=== PATIENT | female | born 1965 | race Caucasian/White ===

== ENCOUNTER 2023-10-07 14:44 | Emergency (ER) | payer MEDICAID, SELFPAY ==
--- NOTE | ~2023-10-07 | US_ITS ---
EXAMINATION: US PELVIS CLINICAL INFORMATION: Left lower quadrant pain, abnormal CT. COMPARISON: CT abdomen/pelvis earlier today. TECHNIQUE: Ultrasound of the pelvis is performed using both transabdominal and transvaginal transducers along with Doppler. Transvaginal imaging is performed due to inadequate visualization transabdominally. FINDINGS: Anteverted and anteflexed uterus measuring 8.6 x 3.9 x 4.4 cm. There is a 0.8 x 0.6 x 0.8 cm intramural posterior uterine lesion, most likely representing a fibroid. There is a 1.3 x 1.3 x 1.4 centimeters indeterminate intramural lesion in the cervix. The endometrium is heterogeneous with combination of solid and cystic appearing contents, measuring up to 0.6 cm in thickness. The ovaries are normal in morphology with preserved flow at the moment of this examination. The right ovary measures 1.5 x 1.2 x 1.6 cm, 1.5 mL. The left ovary measures 1.9 x 1.5 x 2.2 cm, 3.3 mL. No significant amount of free fluid. US/US pelvic and transvaginal IMPRESSION: 1. The endometrium is heterogeneous with combination of solid and cystic appearing contents, measuring up to 0.6 cm in thickness. This is abnormal in a postmenopausal patient and gynecologic consultation is recommended for evaluation of hyperplasia/neoplasia. 2. There is a 1.4 cm indeterminate intramural lesion in the cervix, possibly representing a fibroid, although location is somewhat atypical. This could be further characterized with an outpatient pelvic MRI with and without IV contrast. 3. There is a 0.8 cm intramural posterior uterine lesion, most likely representing a fibroid. 4. The ovaries are normal in morphology with preserved flow at the moment of this examination.
--- NOTE | ~2023-10-07 | CT_ITS ---
EXAMINATION: CT ABDOMEN AND PELVIS WITH CONTRAST CLINICAL INFORMATION: Left-sided abdominal pain. COMPARISON: None available. TECHNIQUE: Multidetector volumetric images were obtained from the superior aspect of the liver through the pubic symphysis following administration 85 mL of Omnipaque 350 intravenous contrast. Sagittal and coronal reformatted images were obtained on the technologist's workstation. Oral contrast: No This CT examination was performed using dose optimization techniques as appropriate, variously including the following: *Automated exposure control *Adjustment of mA and/or kV according to patient size (this includes techniques or standardized protocols for targeted exams where dose is matched to indication/reason for exam; i.e. extremities or head) *Use of iterative reconstruction technique DLP: 577 mGy-cm FINDINGS: LUNG BASES: No focal consolidation or pleural effusion. Few nonspecific nodularities in the bilateral breasts, for instance measuring 1 cm in the inferolateral left breast (6:15) and 0.7 cm in the central right breast (6:104). LIVER, GALLBLADDER, AND BILIARY TREE: The liver is mildly enlarged measuring 18.2 cm craniocaudally and demonstrates decreased parenchymal attenuation suggesting hepatic steatosis. Otherwise, the liver is normal in morphology without suspicious focal lesion. The gallbladder is not seen, presumably surgically removed or decompressed. No significant inflammatory changes in the gallbladder fossa. No biliary ductal dilatation. PANCREAS: Diffuse fatty atrophy. No main ductal dilatation. No peripancreatic inflammatory changes. SPLEEN: Unremarkable. ADRENAL GLANDS: Unremarkable. KIDNEYS AND URETERS: The kidneys are normal in size, shape, and attenuation. A few too small to characterize cortical hypodensities, for which no imaging follow-up is recommended. No hydronephrosis, hydroureter, or calculi seen. No perinephric stranding. BLADDER: Unremarkable. GASTROINTESTINAL TRACT: The stomach and the small bowel are nondilated. Duodenal diverticulum. Normal appendix. No pericolonic inflammatory changes. No evidence of bowel obstruction. ABDOMINAL WALL: No significant hernia is appreciated. LYMPH NODES: No lymphadenopathy by CT short axis size criteria. VASCULAR: Scattered atherosclerotic disease. Normal caliber of the abdominal aorta. PELVIC VISCERA: Trace amount of free fluid and fat stranding in the pelvis around the left greater than right adnexa and in the cul-de-sac. Slightly asymmetric left adnexal vasculature. Nonspecific high density focus in the mid endometrial canal measuring 0.9 cm (sagittal image 55 series 6). OSSEOUS STRUCTURES: Unremarkable. CT/CT abdomen pelvis w IV con IMPRESSION: 1. Trace amount of free fluid and fat stranding in the pelvis around the left greater than right adnexa and in the cul-de-sac. These findings are nonspecific and could be physiologic, recommend clinical correlation for acute genitourinary pathology, and if indicated consider further characterization with pelvic ultrasound. 2. Nonspecific high density focus in the mid endometrial canal. Recommend further characterization with a nonemergent pelvic ultrasound. 3. The left gonadal/adnexal veins are slightly asymmetric and engorged, some degree of underlying pelvic venous insufficiency could be present in the appropriate clinical context. 4. Mild hepatomegaly and hepatic steatosis. 5. Nonspecific nodularities in the bilateral breasts. Recommend correlation with a nonemergent diagnostic mammogram.
[2023-10-07 15:00] VITALS: BP 175/85; PULSE 96; RESP 18; TEMP 36.6; O2SAT 97; BMI 29.0
--- NOTE | 2023-10-07 15:03 | ED_ITS ---
HPI - General Adult General Chief complaint: Abdominal Pain Stated complaint: Fever 5 days, back pain L side Time Seen by Provider: 10/07/23 16:23 Source: patient Mode of arrival: ambulatory Limitations: no limitations History of Present Illness HPI narrative: Patient is a 58-year-old female who presents to the emergency department for evaluation. She endorses tactile fever, and left-sided abdominal pain, feels as though it is worse in the lower quadrant but present also to the upper quadrant, and radiates to her left lower back. She denies any history of similar pain in the past. She does state that when she is urinating she notices a ?pulling sensation? to the left lower quadrant. Admits that pain is worse at times with certain movements. She has been taking Tylenol every 4 hours which provides her some relief but the pain remains constant. She denies chest pain, shortness of breath, nausea, vomiting, dysuria, hematuria, urinary frequency/urgency/hesitancy, abnormal vaginal discharge, pelvic pain, constipation, diarrhea, hematochezia, melena. Related Data Allergies Allergy/AdvReac Type Severity Reaction Status Date / Time latex Allergy Intermediate Rash Verified 10/07/23 16:28 morphine Allergy Unknown Unknown Verified 10/07/23 16:28 Review of Systems 2 Review of Systems: Yes all other systems are reviewed and are negative PMFSH Past Medical History Attestation statement: The following information was validated with the patient. Source: old records reviewed Social History Social History Smoked in Last 30 Days: No Advance Directives: No Advance Directives Information Provided: No Do you have a plan to hurt others: No Plan Patient : No Physical Exam ED Vital Signs: Vital Signs - 24 hr 10/07/23 15:00 10/07/23 16:18 10/07/23 18:31 Temperature 98 F 98.2 F 97.5 F Pulse Rate 96 86 91 Respiratory Rate 18 18 12 Blood Pressure 175/85 H 179/90 H 168/71 H Pulse Oximetry 97 98 99 Oxygen Delivery Method Room Air Room Air Room Air 10/07/23 21:02 Temperature 98.0 F Pulse Rate 76 Respiratory Rate 14 Blood Pressure 149/75 H Pulse Oximetry 97 Oxygen Delivery Method Room Air BMI result Body Mass Index 29.0 Appearance: Alert.?Oriented to person, place and time. No acute distress.?Normal affect. Eyes: Pupils equal, round and reactive to light.? ENT: Pharynx normal.?? Neck: Normal inspection.? Neck supple.?? CVS: Heart sounds normal. Normal heart rate and rhythm.? Pulses normal.?? Respiratory: No respiratory distress.? Lung sounds clear to auscultation bilaterally?? Abdomen: Soft with left lower quadrant greater than left upper quadrant abdominal tenderness upon palpation, left CVA tenderness. No rigidity. No guarding.. Normoactive bowel sounds. No pulsatile mass.?? Skin: Skin warm and dry.? Normal skin color.? ? Extremities: No lower extremity edema.? Neuro: Moves all extremities spontaneously. Sensation intact bilaterally. Ambulates with normal steady gait. Course Course Course Narrative: This is a rapid medical exam performed by Netta Lehman NP: Additional HPI, ROS, PE not included below will be deferred to primary provider. Patient is a 58-year-old female presenting to the ED with complaint of fever and LLQ abdominal pain for 5 days. Denies vomiting. Reports occasional constipaiton. Plan: Labs, UA Reevaluation(s) Reevaluation #1: CT abdomen and pelvis reveals trace amount of free fluid and fat stranding in the pelvis around the left adnexa more than the right and high density focus in the mid endometrial canal measuring 0.9 cm, left gonadal/adnexal veins asymmetric and engorged, and nonspecific nodules of the bilateral breasts, recommending nonemergent diagnostic mammogram. CT is without evidence of hydronephrosis, hydroureter calculi, no diverticulitis, obstruction, or colonic changes. Reevaluation #2: Ultrasound reveals heterogeneous endometrium with solid and cystic contents, abnormal postmenopausal appearance, 1.4 cm intramural lesion to the cervix of atypical location intramural posterior uterine lesion, these findings were discussed with patient and it was recommended that she follow-up closely with enterprise security architect, we discussed concerns for potential neoplasia, and she verbalized understanding of this. Time: 21:18 Medications Administered Discontinued Medications Generic Name Dose Route Start Last Admin Trade Name Freq PRN Reason Stop Dose Admin Sodium Chloride 1,000 mls @ 999 mls/hr 10/07/23 17:00 10/07/23 19:57 Ns IV 10/07/23 18:00 Infused .Q1H1M AMPARO Infusion Iohexol 85 ml 10/07/23 17:29 10/07/23 17:30 Iohexol 350 Mg/Ml 100 Ml Infus..Btl IV 10/07/23 17:30 85 ml ONCE ONE Administration Ketorolac Tromethamine 15 mg 10/07/23 16:52 10/07/23 17:08 Ketorolac Tromethamine 15 Mg/Ml Vial IVPUSH 10/07/23 16:53 15 mg ONCE ONE Administration Medical Decision Making Medical Decision Making [facility] Narrative: Patient is a 58-year-old female with past medical history of hypertension, cholecystectomy, and fibromyalgia for which she takes meloxicam daily presenting to emergency department for evaluation of abdominal pain and tactile fevers as per HPI. Overall she appears well, nontoxic, afebrile. She is without tachycardia tachypnea or hypoxia. She is notable left-sided abdominal tenderness and left CVA tenderness on exam but no rigidity or guarding. Reviewed serum labs, she is without leukocytosis, has mild normocytic anemia that does not meet transfusion criteria, no thrombocytopenia. Electrolytes overall unremarkable, random glucose of 152, mildly elevated AST/ALT no prior available for comparison, lipase normal. Urinalysis with trace leukocyte esterase otherwise unremarkable, does not appear consistent with urinary tract infection, and no evidence of microscopic hematuria. Plan to obtain CT of the abdomen and pelvis for further evaluation, patient will receive 1 L normal saline IV fluid and Toradol IV. Differential Diagnosis Differential Diagnoses: The differential diagnosis associated with the presentation includes (Diverticulitis, colitis, suspect less likely bowel obstruction, hydronephrosis, ureteral calculi, obstructive calculi, gastritis, pancreatitis) Admission/Observation Consideration of admission/observation: Escalation of care including admission/observation considered Lab Data [facility] Lab Attestation statement: I reviewed the patient's lab results. (See narrative above) 10/07/23 15:31 10/07/23 15:31 Labs: Lab Results 10/07/23 10/07/23 Range/Units 15:31 15:35 WBC 6.2 (4.8-10.8) X10*3/uL RBC 4.03 L (4.20-5.50) X10*6/uL Hgb 11.9 L (12.0-16.0) g/dl Hct 36.3 L (37.0-47.0) % MCV 90.1 (80.0-98.0) fL MCH 29.5 (27.0-33.0) pg MCHC 32.8 (31.0-35.0) g/dl RDW 14.1 (11.0-16.0) % Plt Count 204 (160-400) X10*3/uL MPV 9.3 L (9.4-12.3) fL Immature Gran % (Auto) 0.3 (0.0-0.4) % Neut % (Auto) 47.5 (45-73) % Lymph % (Auto) 33.4 (20-40) % Person % (Auto) 16.9 H (2-11) % Eos % (Auto) 1.9 (0-4) % Baso % (Auto) 0.0 (0-2) % Lymph # (Auto) 2.1 (1.2-4.9) X10*3/uL Person # (Auto) 1.1 (0.1-1.2) X10*3/uL Eos # (Auto) 0.1 (0.0-0.4) X10*3/uL Baso # (Auto) 0.0 (0.0-0.2) X10*3/uL Abs Immat Gran (auto) 0.02 (0.00-0.03) X10*3/uL Absolute Neuts (auto) 3.0 (2.0-8.3) x10*3/uL Absolute Nucleated RBC 0.000 (0.0-0.012) X10*3/uL Nucleated RBC % (auto) 0.0 (0.0-0.2) /100WBC PT 13.0 (11.1-13.3) SEC INR 1.1 (0.9-1.1) Sodium 144 (135-145) mmol/L Potassium 4.3 (3.3-5.1) mmol/L Chloride 109 H (96-108) mmol/L Carbon Dioxide 28 (22-29) mmol/L Anion Gap 11 L (12-20) BUN 13 (9-16) mg/dL Creatinine 0.90 (0.5-1.4) mg/dL Estim Creat Clear Calc 71.6 Estimated GFR > 60 Random Glucose 152 H (60-115) mg/dL Calcium 9.8 (8.4-10.2) mg/dL Total Bilirubin 0.2 (0.0-1.0) mg/dL AST 40 H (5-31) U/L ALT 78 H (0-31) U/L Alkaline Phosphatase 101 (39-117) U/L Total Protein 7.5 (6.5-8.0) g/dL Albumin 4.0 (3.5-5.0) g/dL Lipase 17 (8-78) U/L Urine Color Yellow Urine Appearance Clear Urine pH 7.0 (5.0-9.0) Ur Specific [place] 1.025 (1.005-1.025) Urine Protein Trace (Neg-Trace) mg/dL Urine Glucose (UA) Negative (Negative) mg/dL Urine Ketones Trace (Negative) mg/dL Urine Blood Negative (Negative) Urine Nitrite Negative (Negative) Ur Leukocyte Esterase Trace H (Negative) Urine RBC 0-2 (0-2) /HPF Urine WBC 0-5 (0-5) /HPF Ur Squamous Epith Cells 0-2 (0-2) /HPF Urine Bacteria None Seen (None Seen) Hyaline Casts 0-2 (0-2) /LPF Radiology Impression Discussion of test interpretation with radiology: I have reviewed the radiologist's reading. Radiologist Impression: CT/CT abdomen pelvis w IV con IMPRESSION: 1. Trace amount of free fluid and fat stranding in the pelvis around the left greater than right adnexa and in the cul-de-sac. These findings are nonspecific and could be physiologic, recommend clinical correlation for acute genitourinary pathology, and if indicated consider further characterization with pelvic ultrasound. 2. Nonspecific high density focus in the mid endometrial canal. Recommend further characterization with a nonemergent pelvic ultrasound. 3. The left gonadal/adnexal veins are slightly asymmetric and engorged, some degree of underlying pelvic venous insufficiency could be present in the appropriate clinical context. 4. Mild hepatomegaly and hepatic steatosis. 5. Nonspecific nodularities in the bilateral breasts. Recommend correlation with a nonemergent diagnostic mammogram. US/US pelvic and transvaginal IMPRESSION: 1. The endometrium is heterogeneous with combination of solid and cystic appearing contents, measuring up to 0.6 cm in thickness. This is abnormal in a postmenopausal patient and gynecologic consultation is recommended for evaluation of hyperplasia/neoplasia. 2. There is a 1.4 cm indeterminate intramural lesion in the cervix, possibly representing a fibroid, although location is somewhat atypical. This could be further characterized with an outpatient pelvic MRI with and without IV contrast. 3. There is a 0.8 cm intramural posterior uterine lesion, most likely representing a fibroid. 4. The ovaries are normal in morphology with preserved flow at the moment of this examination. Discharge Plan Discharge Clinical Impression: Abnormal ultrasound of endometrium, Abdominal pain Instructions: Abdominal Pain (ED) Additional Instructions: As discussed, the pelvic ultrasound today shows an abnormal endometrium which is the inner lining of your uterus, as well as a lesion on your cervix and a posterior uterine lesion. As discussed, it is very important that you follow-up closely with a 7th grade teacher for further evaluation and determination as to whether this may indicate a cancerous process. US/US pelvic and transvaginal IMPRESSION: 1. The endometrium is heterogeneous with combination of solid and cystic appearing contents, measuring up to 0.6 cm in thickness. This is abnormal in a postmenopausal patient and gynecologic consultation is recommended for evaluation of hyperplasia/neoplasia. 2. There is a 1.4 cm indeterminate intramural lesion in the cervix, possibly representing a fibroid, although location is somewhat atypical. This could be further characterized with an outpatient pelvic MRI with and without IV contrast. 3. There is a 0.8 cm intramural posterior uterine lesion, most likely representing a fibroid. 4. The ovaries are normal in morphology with preserved flow at the moment of this examination. Referrals: Reid Sutherland MD [Physician] - Print Language: Citizen [place]
[2023-10-07 15:39] LABS: MANUAL DIFF FLAG NO
[2023-10-07 15:44] LABS: Appearance Urine Clear; Color Urine Yellow; Glucose Urine UA Negative (Negative); Leukocyte Esterase Urine Trace (Negative); Nitrite Urine Negative (Negative); Specific Gravity - Urine 1.025 (1.005-1.025); UMIC TRIGGER UACC YES; Urine Blood Negative (Negative); Urine Ketones Trace mg/dL (Negative); Urine Protein Trace mg/dL (Neg-Trace)
[2023-10-07 15:49] LABS: INTERNATIONAL NORM RATIO 1.1 (0.9-1.1)
[2023-10-07 15:49] LABS: Bacteria Urine None Seen (None Seen); Hyaline Casts Urine 0-2 /LPF (0-2); RBC Urine 0-2 /HPF (0-2); Squamous Epithelial Cell Urine 0-2 /HPF (0-2); WBC Urine 0-5 /HPF (0-5)
[2023-10-07 15:50] LABS: Eosinophils Absolute Auto 0.1 X10*3/uL (0.0-0.4); Eosinophils Percent Auto 1.9 % (0-4); Hematocrit 36.3 % (37.0-47.0); Hemoglobin 11.9 g/dl (12.0-16.0); Imm Gran Abs Auto 0.02 X10*3/uL (0.00-0.03); Imm Gran Pct Auto 0.3 % (0.0-0.4); Lymphocytes Absolute Auto 2.1 X10*3/uL (1.2-4.9); Lymphocytes Percent Auto 33.4 % (20-40); Mean Corpuscular HGB Conc 32.8 g/dl (31.0-35.0); Mean Corpuscular Hemoglobin 29.5 pg (27.0-33.0); Mean Corpuscular Volume 90.1 fL (80.0-98.0); Mean Platelet Volume 9.3 fL (9.4-12.3); Monocytes Absolute Auto 1.1 X10*3/uL (0.1-1.2); Monocytes Percent Auto 16.9 % (2-11); Neutrophils Percent Auto 47.5 % (45-73); Platelet Count 204 X10*3/uL (160-400); Red Blood Count 4.03 X10*6/uL (4.20-5.50); Red Cell Distribution Width 14.1 % (11.0-16.0); White Blood Count 6.2 X10*3/uL (4.8-10.8)
[2023-10-07 16:05] LABS: Alanine Aminotransferase 78 U/L (0-31); Alkaline Phosphatase 101 U/L (39-117); Anion Gap 11 (12-20); Aspartate Amino Transferase 40 U/L (5-31); Bilirubin Total 0.2 mg/dL (0.0-1.0); Blood Urea Nitrogen 13 mg/dL (9-16); Calcium 9.8 mg/dL (8.4-10.2); Carbon Dioxide 28 mmol/L (22-29); Chloride 109 mmol/L (96-108); Creatinine Clr Calc Pharmacy 71.6; Estimated Glomerular Filt Rate > 60; Glucose Random 152 mg/dL (60-115); Potassium 4.3 mmol/L (3.3-5.1); Sodium 144 mmol/L (135-145); Total Protein 7.5 g/dL (6.5-8.0)
[2023-10-07 16:18] VITALS: BP 179/90; PULSE 86; RESP 18; TEMP 36.8; O2SAT 98
[2023-10-07] MEDS: Ketorolac Tromethamine 15 MG/ML VIAL IVPUSH (17:08)
[2023-10-07] MEDS: 0.9 % Sodium Chloride 1,000 ML 999 ML IV (17:08)
--- NOTE | 2023-10-07 17:15 | PC.NURSE ---
patient a&ox3, iv inserted, ivf hung per order, pt medicated per order, vss, call camacho within reach, will continue to monitor
[2023-10-07] MEDS: iohexoL 350 MG/ML 100 ML INFUS..BTL 85 ML IV (17:30)
[2023-10-07 18:20] LABS: Lipase 17 U/L (8-78)
[2023-10-07 18:31] VITALS: BP 168/71; PULSE 91; RESP 12; TEMP 36.4; O2SAT 99
[2023-10-07 21:02] VITALS: BP 149/75; PULSE 76; RESP 14; TEMP 36.7; O2SAT 97
[2023-10-07 21:45] VITALS: BP 149/75; PULSE 76; RESP 14; TEMP 36.7; O2SAT 97
== END 2023-10-07 21:46 | disposition home or self-care (01) ==
PROVIDERS: Nurse Practitioner Family; Registered Nurse Emergency; Emergency Provider Internal Medicine
DX: M54.50 Low back pain, unspecified (principal); R93.5 Abnormal findings on diagnostic imaging of other abdominal regions, including retroperitoneum; R10.32 Left lower quadrant pain; R30.0 Dysuria; R10.2 Pelvic and perineal pain; R11.2 Nausea with vomiting, unspecified; Z79.899 Other long term (current) drug therapy
CPT/HCPCS: 36415; 74177; 76830; 76856; 80053; 81001; 83690; 85025; 85610; 96361; 96374; 99284; J1885; Q9967

== ENCOUNTER 2024-06-15 09:16 | Outpatient (AMB) | payer OTHER, SELFPAY ==
[2024-06-15 09:53] VITALS: BP 146/92; BMI 29.7
--- NOTE | 2024-06-15 09:53 | MHC.OFFVIS ---
Vital Signs 06/15/24 09:53 Height 5 ft 4.5 in Weight 176 lb BMI 29.7 BP 146/92 H Intake Visit Reasons: Abnormal ultrasound Oil Program Compliance Specialist Required: Yes Oil Program Compliance Specialist Language: Frame Stylist Services: Oil Program Compliance Specialist Present (in person) Oil Program Compliance Specialist Name: Дмитрий GA Information Interpreted: non-clinical & clinical Accompanied by: Self / Same As Patient Allergies codeine Allergy (Intermediate, Verified 06/15/24 09:56) Vomiting latex Allergy (Intermediate, Verified 06/15/24 09:56) Rash morphine Allergy (Unknown, Verified 06/15/24 09:56) Unknown Post menopausal: Yes HPI Comments Details: Presenting referred for abnormal ultrasound done in the emergency room. Pelvic ultrasound done on 10/07/2023 showed the following: IMPRESSION: 1. The endometrium is heterogeneous with combination of solid and cystic appearing contents, measuring up to 0.6 cm in thickness. This is abnormal in a postmenopausal patient and gynecologic consultation is recommended for evaluation of hyperplasia/neoplasia. 2. There is a 1.4 cm indeterminate intramural lesion in the cervix, possibly representing a fibroid, although location is somewhat atypical. This could be further characterized with an outpatient pelvic MRI with and without IV contrast. 3. There is a 0.8 cm intramural posterior uterine lesion, most likely representing a fibroid. 4. The ovaries are normal in morphology with preserved flow at the moment of this examination. [facility] Medical History (Updated 06/15/24 @ 10:21 by Reid Sutherland MD) Breast cancer Fibromyalgia GERD (gastroesophageal reflux disease) HTN (hypertension) Surgical History (Updated 06/15/24 @ 10:01 by Marisela Rodriguez CMA) Hx of tubal ligation History of bladder surgery Hx of breast surgery Hx of cholecystectomy Family History (Updated 06/15/24 @ 10:03 by Marisela Rodriguez CMA) Mother HTN (hypertension) Father HTN (hypertension) Heart attack Maternal Aunt Breast cancer Maternal Uncle Colon cancer Paternal Grandmother Uterus cancer Social History Household Members: None Housing: House Alcohol intake: never Patient Tobacco Use Status: Never used Tobacco Current occupational status: employed 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 Recommended to the patient that the next step is an endometrial sampling via hysteroscopy D&C possible polypectomy versus endometrial biopsy to r/o endometrial pathology including hyperplasia or cancer. All the pros and cons risks and benefits of each approach were discussed with the patient, endometrial biopsy being less invasive, office procedure with less sensitivity and inability diagnose a polyp and removal versus hysteroscopy done under anesthesia more invasive more sensitive to endometrial cancer and possibility of diagnosing and endometrial polyp with the possibility of polypectomy. All questions were answered pt verbalized understanding and decided to proceed with endometrial biopsy Discussed with the patient the procedure , all benefits and risks including but not limited to inability to complete the procedure , insufficient endometrial tissue for a complete evaluation of the endometrial cavity , bleeding, infection, possible need for blood transfusion with all its risk ( HIV,syphilis, Hepatitis, anaphylaxis shock, others..), injury to bladder, rectum, possible need for laparoscopy/laparotomy or hysterectomy. The patient verbalized understanding and signed the consent. Instructions given the patient to stay NPO after midnight the day prior to the procedure and to take only losartan the morning of the surgical procedure and to schedule a 2 week postoperative appointment (2) Myoma: Comment: uterinr myoma cervix atypical looking by us Code(s): D21.9 - Benign neoplasm of connective and other soft tissue, unspecified Category: Medical Plan: Co testing done. Given the atypical appearance of the cervical lesion possible myoma pelvic MRI ordered. Instructions given the patient to schedule MRI and a follow-up appointment within 2 weeks. Orders: Orders MR pelvis wo/w con Today D21.9 - Benign neoplasm of connective and other soft tissue, unspecified Coding Level of Care Code New Pt Level 3 (11417) Diagnoses Abnormal ultrasound of endometrium R93.5 Myoma D21.9
--- OUTSIDE RECORDS SUMMARY | 2024-06-15 10:12 | XMS_ITS | Clinical Summary ---
Author Organization [facility] Address [address] [place] [address] Care Team Providers Care Near East Archeology Professor Name Role Phone Morelia Astudillo MD Primary Care Provider [phone] Surgical History Surgery Date Site/Laterality Comments COLONOSCOPY 07/19/08 PROCEDURE: HISTORICAL COLONOSCOPY; COMMENT: normal; repeat in ten years CHOLECYSTECTOMY 2005 PROCEDURE: HISTORICAL CHOLECYSTECTOMY; COMMENT: [facility] BLADDER SUSPENSION 2015 PROCEDURE: HISTORICAL BLADDER SUSPENSION TUBAL LIGATION PROCEDURE: HISTORICAL TUBAL LIGATION OTHER SURGICAL HISTORY 07/07/2017 Right PROCEDURE: BREAST TISSUE EXCISIONAL PATHOLOGY EXAM; COMMENT: no malignancy noted Medical History Medical History Date Comments Atypical ductal hyperplasia of right breast 06/20/2017 DX:Atypical ductal hyperplas ia of right breast; COMMENT: 06/06/2017 breast biopsy Hypertension 06/20/2017 DX:Hypertension History of positive PPD 09/05/2017 DX:Histo ry of positive PPD Asymptomatic varicose veins of both lower extremities 09/10/2018 DX:Asymptomatic varicose vei ns of both lower extremities Gastroesophageal reflux disease 09/10/2018 DX:Gastroesophageal reflux disease Primary osteoarthritis invol ving multiple joints 02/03/2019 DX:Primary osteoarthritis in volving multiple joints; COMMENT: Folows with rheumatology [place] Fibromyalgia 02/03/2019 DX:Fibromyalgia; COMMENT: Follows with rheumatology Actinic keratosis, hx of DX:Acti azael keratosis, hx of Family History Medical History Relation Name Comments Breast cancer Aunt maternal diag in her 40 's, diabetes Heart attack Father CAD Colon polyps Mother x4, arthritis, hyperlipidemia, hypertension Colon cancer Uncle ? mat or patern al Relation Name Status Comments Aunt maternal Alive mom's sister br east cancer Father diabetes Mother Alive arthritis, chol esterol problems Uncle Social History Tobacco Use Types Packs/Day Years Used Date Smoking Tobacco: Never Smokeless Tobacco: Never Alcohol Use Standard Drinks/Week Comments No 0 (1 standard drink = 0.6 oz pur e alcohol) Comments Unknown Sex and Gender Information Value Date Recorded Sex Assigned at Not on file Legal Sex Female 6:19 PM EST Gender Identity Not on file Sexual Orientation Not on file Obstetrics History Plan of Treatment Health Maintenance Due Date Last Done Comments Breast Cancer Screening 1965 Pneumococcal Vaccine: 50+ Years (1 of 1 - PCV) 2013 Zoster Vaccines (1 of 2) 2013 Cervical Cancer Screening: P ap Smear 02/13/2021 02/13/2018 COVID-19 Vaccine (3 - 2023-2 5 season) 2023 07/31/2020, 07/01/2020 Influenza Vaccine (#1) 2023 , 01/23/2018 DTaP,Tdap,and Td Vaccines (3 - Td or Tdap) 09/06/2027 09/05/2017, 04/29/2005 RSV Immunization Patients 60 + Years Old (1 - 1-dose 75+ series) 2038 HIB Vaccines Aged Out No longer eligi ble based on patient's age to complete this topic HPV Vaccines Aged Out No longer eligi ble based on patient's age to complete this topic Hepatitis A Vaccines Aged Out No long er eligible based on patient's age to complete this topic Hepatitis B Vaccines Aged Out No long er eligible based on patient's age to complete this topic IPV Vaccines Aged Out No longer eligi ble based on patient's age to complete this topic MMR Vaccines Aged Out No longer eligi ble based on patient's age to complete this topic Meningococcal ACWY Vaccine Aged Out N o longer eligible based on patient's age to complete this topic Meningococcal B Vacine Aged Out No lo nger eligible based on patient's age to complete this topic Pneumococcal Vaccine: Pediatrics (0 to 5 Years) and At-Risk Patients (6 to 64 Years) Aged Out No longer eligible b ased on patient's age to complete this topic RSV Immunization Patients Under 20 months Aged Out No longer eligible b ased on patient's age to complete this topic Varicella Vaccines Aged Out No longer eligible based on patient's age to complete this topic Procedures Procedure Name Priority Date/Time Associated Diagnosis Comments PAP SMEAR Routine 02/13/2018 from Last 3 Months or Most Recently Relevant to Health Maintenance Results * Pap smear (02/13/2018) 02/13/2018 Narrative HISTORICAL TESTING LAB RESULTING AGENCY - 02/20/2018 8:17 AM EST [id number] THINPREP PAP, IMAGED: NEGATIVE FOR SQUAMOUS INTRAEPITHELIAL LESION AND MALIGNANCY . REACTIVE CELLULAR CHANGES. REDD SRIVASTAVA(ASCP) (CASE SCREENED 02 17 2018) BRITTNEY ALEGRIA M.D. , PATHOLOGIST (CASE ELECTRONICALLY SIGNED 02 18 2018) RESULT OF APTIMA HIGH RISK HPV ASSAY: HIGH RISK HPV: ??NEGATIVE (SEROTYPES 16,18,31,33,35,39,45,51,52,56,58,59,66,68) COMPLETED ON 2018-02-17 ADEQUACY: SATISFACTORY ENDOCERVICAL/TRANSFORMATION ZONE COMPONENT PRESENT. SOURCE: THINPREP PAP HPV ANY DX: ??REFLEX 16 AND 18, CERVICAL, IMAGED: CLINICAL INFORMATION: HPV ANY DIAGNOSIS. Z01.419, Z12.4 us Chauncey Oneill MD LAB CYTOLOGY ORDERABLES Final Result HISTORICAL TESTING LAB RESULTING AGENCY from Last 3 Months or Most Recently Relevant to Health Maintenance Care Teams Near [place] Archeology Professor Relationship Specialty Start Date End Date Morelia Astudillo MD [address] [place] [id number] PCP - General Internal Medicine 03/19/19
--- OUTSIDE RECORDS SUMMARY | 2024-06-15 10:12 | XMS_ITS | Clinical Summary ---
Author Organization [facility] Address [address] [place] [address] Care Team Providers Care Pulp Screen Operator Name Role Phone Gabbie Del Valle PA-C Primary Care Provider [phone] Source Comments PLEASE NOTE, if this patient is a minor, it may be UNLAWFUL to discuss sensitive information that is contained in these records (such as FAMILY PLANNING, MENTAL HEALTH or SUBSTANCE ABUSE) with the minor patient's parent or other person without the patient's specific authorization.[facility] Allergies Active Allergy Reactions Criticality Noted Date Comments Latex Rash 09/26/2021 Morphine (Pf) Swelling 09/26/2021 Medications omeprazole (PRILOSEC) [address] capsuleIndicatio ns:Reflux gastritis Take 1 Capsule by mouth every morning before breakfast 90 Capsule 2 Active melatonin 3 mg tabletIndication s:Insomnia, unspecified type Take 1 Tablet by mouth nightly at bedtime as needed for sleep 90 Tablet 2 Active meclizine 25 mg chewable tabletIndication s:Dizziness Place 1 Tablet into mouth, chew and swallow 3 (three) times daily as needed for nausea or dizziness 90 Tablet 2 3 Active milnacipran (SAVELLA) 25 mg tabletIndication s:Fibromyalgia Take 1 Tablet by mouth 2 (two) times daily For fibromyalgia. 60 Tablet 1 3 Active meloxicam (MOBIC) 15 mg tabletIndication s:Fibromyalgia Take 1 Tablet by mouth once daily 30 Tablet 3 4 Active DULoxetine (CYMBALTA) [address] capsuleIndicatio ns:Fibromyalgia Take 1 Capsule by mouth once daily 90 Capsule 1 4 Active loratadine (CLARITIN) 10 mg tabletIndication s:Dry cough TAKE 1 TABLET BY MOUTH ONCE DAILY NEEDED FOR ALLERGIES 90 Tablet 4 Active guaiFENesin 400 mg tabIndications:P roductive cough Take 1 Tablet by mouth every 4 (four) hours as needed for cough 30 Tablet 4 Active losartan (COZAAR) 100 mg tabletIndication s:Hypertension, essential Take 1 Tablet by mouth once daily 90 Tablet 1 4 Active Active Problems Problem Noted Date Diagnosed Date Myopia of both eyes 12/24/2023 Blurry vision, bilateral 12/24/2023 Prediabetes 12/24/2023 Food insecurity 02/06/2023 Financial difficulties 02/06/2023 Housing problems 02/06/2023 Lack of access to transportation 02/06/2023 Hypertension, essential 09/26/2021 Fibromyalgia 09/26/2021 Reflux gastritis 09/26/2021 Encounters Date Type Department Care Team Description 05/10/2024 11:40 AM EST Telemedicine Visit [address] [address] Gabbie Del Valle PA-C Abnormal endometrial ultrasound (Primary Dx); Pelvic pain 03/24/2024 1:20 PM EST Office Visit [address] [address] Gabbie Del Valle PA-C Hypertension, essential (Primary Dx); Productive cough 03/24/2024 Travel from Last 3 Months Immunizations Name Administration Dates Next Due Flu, Cell Culture based, Multi Dose, 6m+, Flucel vax 01/23/2018 Flu, Cell Culture based, Pre servative Free, 6m+, Flucelvax 03/19/2019 Flu, Preservative Free 02/06/2023 PFIZER COVID VACCINE, PURPLE CAP, 12+ 07/31/2020 ,07/01/2020 TDAP 09/05/2017 Td (adult) unspecified 06/08/2009 Td(adult),2 Lf tetanus toxoid,preservative free 04/29/2005 ZOSTER VACCINE, RECOMBINANT (SHINGRIX) 3,08/03/2022 Family History Medical History Relation Name Comments No Known Problems Father Bone cancer Maternal Aunt Breast cancer Maternal Aunt Colon Cancer Maternal Uncle No Known Problems Mother Cervical Cancer Paternal Grandmother Relation Name Status Comments Father Maternal Aunt Maternal Uncle Mother Paternal Grandmother Social History Tobacco Use Types Packs/Day Years Used Date Smoking Tobacco: Never Smokeless Tobacco: Never Tobacco Cessation:Counseling Given: Yes Alcohol Use Standard Drinks/Week Comments Never 0 (1 standard drink = 0.6 oz pur e alcohol) Social Connections Answer Date Recorded Connectedness 1 12/24/2023 Financial Resource Strain Answer Date R ecorded Financial Resource Strain 1 2023 Stress Answer Date Recorded Stress 2 12/24/2023 Physical Activity Answer Date Recorded Physical Activity 0 09/26/2021 Food Insecurity Answer Date Recorded Food 1 12/24/2023 Transportation Needs Answer Date Record ed Transportation 1 12/24/2023 Housing Stability Answer Date Recorded Housing 1 12/24/2023 Safety and Environment Answer Date Morris rded Safety 0 02/06/2023 Utilities Answer Date Recorded Utilities 1 12/24/2023 Employment Answer Date Recorded Stress 0 11/19/2022 Comments No Sex and Gender Information Value Date Recorded Sex Assigned at Female 09/26/2021 6:40 AM PDT Legal Sex Female 8:33 AM PST Gender Identity Female 09/26/2021 6:40 AM PDT Sexual Orientation Straight 09/26/2021 6: 40 AM PDT Last Filed Vital Signs Vital Sign Reading Time Taken Comments Blood Pressure 160/90 03/24/2024 1:24 PM EST Pulse 82 03/24/2024 1:24 PM EST Temperature 36.8 ??C (98.2 ??F) 03/24/2024 1:24 PM ES T Respiratory Rate 16 12/24/2023 1:17 PM EDT Oxygen Saturation 96% 03/24/2024 1:24 PM EST Inhaled Oxygen Concentration - - Weight 81.9 kg (180 lb 8 oz) 03/24/2024 1:24 PM EST Height 162.6 cm (5' 4 ) 03/24/2024 1:24 PM EST Body Mass Index 30.98 03/24/2024 1:24 PM EST Plan of Treatment Health Maintenance Due Date Last Done Comments HPV Screening 1963 CT Colonography 2008 Colonoscopy 2008 Colorectal Cancer Screening 2008 FIT/gFOBT 2008 Fecal DNA 2008 Flexible Sigmoidoscopy 2008 [id number] ( season) 2023 04/02/2021, 07/31/2020, 07/01/2020 Imm-Influenza (#1) 2023 02/06/2023, 1 05/20/2018, 01/23/2018 Breast Cancer Screening (Mammogram) 05/09/2024 11/07/2023, 10/22/2022, 10/07/2022, Additional history exists Depression Monitoring 06/22/2024 03/24/2024 , 12/24/2023, 02/06/2023, Additional history exists Annual Preventive Care Visit 12/23/202402/2024, 02/06/2023, 11/19/2022 Diabetes Screening 12/23/2024 12/24/2023, 0 12/24/2023, 01/11/2023, Additional history exists Tobacco Screening 05/10/2025 05/10/2024 Pap Smear 02/06/2026 02/06/2023 Lipid Screening 12/23/2026 12/24/2023, 12/15, 09/26/2021 Imm-DTaP/Tdap/Td (2 - Td or Tdap) 09/06/2027 09/05/2017, 06/08/2009, 04/29/2005 Cervical Cancer Screening 02/07/2028 Pap + HPV 02/07/2028 02/06/2023 HIV Screening Completed 09/26/2021 Hepatitis C Screening Completed 09/26/2021 Imm-Zoster, Recombinant Completed 10/04/2022, 08/03 Alcohol and Drug Screen Completed 05/10/19, 12/24/2023, 11/19/2022, Additional history exists Cervical Ablation/Cold-Knife Conization Discontinued Cervical Cryotherapy Discontinued Colposcopy Discontinued Endometrial Biopsy Discontinued Excision/Leep Discontinued HPV Genotyping Discontinued Vaginal Pap Discontinued Vulvoscopy Discontinued Procedures Procedure Name Priority Date/Time Associated Diagnosis Comments OTHER ORDERS SCANNED DOCUMENT 05/19/2024 3:00 AM EST US BREAST BILATERAL Routine 05/19/2024 3 :00 AM EST Cyst of right breast COMPREHENSIVE METABOLIC PANEL Routine 12/24/2023 2:05 PM EDT Hypertension, essential Prediabetes LIPIDS W RFLX TO DIRECT LDL Routine 12/24/2023 2:05 PM EDT Hypertension, essential Prediabetes HISTORIC MAMMOGRAM 11/07/2023 3: 00 AM EDT THINPREP PAP & HPV MRNA E6/E7 RFLX HPV 16,18/[address]/NG Routine 02/06/2023 10:22 AM EDT Encounter for Papanicolaou smear of vagina as part of routine gynecological examination Encounter for screening for human papillomavirus (HPV) HIV 1/2 AG & AB W/RFLX (4TH GEN) Routine 09/26/2021 10:36 AM EDT Encounter to establish care HEPATITIS C AB W/RFLX HCV RNA, QT, RT PCR Routine 09/26/2021 10:36 AM EDT Encounter to establish care from Last 3 Months or Most Recently Relevant to Health Maintenance Results * US BREAST BILATERAL (05/19/2024 3:00 AM EST) 05/19/2024 3:00 AM EST Gabbie Del Valle PA-C IMG ULTRASOUND Final Result * OTHER ORDERS SCANNED DOCUMENT (05/19/2024 3:00 AM EST) 05/19/2024 3:00 AM EST us Gabbie Del Valle PA-C SCAN OTHER ORDERS Final Resu lt * (ABNORMAL) LIPIDS W RFLX TO DIRECT LDL (12/24/2023 2:05 PM EDT) CHOLESTEROL, TOTAL 241(H) <200 mg/dL [facility] HDL CHOLESTEROL 49(L) > OR = 50 mg/dL [facility] TRIGLYCERIDES 110 <150 mg/dL [facility] LDL-CHOLESTEROL 168(H) 99 mg/dL (calc) [facility] Comment: Reference range: <100 Desirable range <100 mg/dL for primary prevention; ?? <70 mg/dL for patients with CHD or diabetic patients with > or = 2 CHD risk factors. LDL-C is now calculated using the Juan Manuel calculation, which is a validated novel method providing better accuracy than the Friedewald equation in the estimation of LDL-C. Ahmet LOCKE et al. SURINDER. 2013;310(19): 2970-2518 (http://education.Dialectica/faq/ORB775) CHOL/HDLC RATIO 4.9 <5.0 (calc) [email or web address] NON-HDL CHOLESTEROL 192(H) <130 mg/dL (calc) [email or web address] Comment: For patients with diabetes plus 1 major ASCVD risk factor, treating to a non-HDL-C goal of <100 mg/dL (LDL-C of <70 mg/dL) is considered a therapeutic option. Blood Blood / Unknown 12/24/2023 2 :05 PM EDT 12/24/2023 2:06 PM EDT Narrative [facility] - 12/26/2023 1:08 AM EDT FASTING:NO us Gabbie Del Valle PA-C LAB - BLOOD DRAW Final Resul t [facility] [address] [address], [email or web address] [address] [place] [address] * (ABNORMAL) COMPREHENSIVE METABOLIC PANEL (12/24/2023 2:05 PM EDT) [facility] GLUCOSE 79 65 - 139 mg/dL [email or web address] Comment: ?Non-fasting reference interval UREA NITROGEN (BUN) 16 7 - 25 mg/dL [email or web address] CREATININE (blood) 0.75 0.50 - 1.05 mg/dL [email or web address] EGFR 91 > OR = 60 mL/min/1. 73m2 [email or web address] BUN/CREATININE RATIO SEE NOTE: [email or web address] Comment: ?? Not Reported: BUN and Creatinine are within ?? reference range. ? SODIUM 139 135 - 146 mmol/L [email or web address] POTASSIUM 4.4 3.5 - 5.3 mmol/L [email or web address] CHLORIDE 104 98 - 110 mmol/L [facility] CARBON DIOXIDE 26 20 - 32 mmol/L [facility] CALCIUM 10.1 8.6 - 10.4 mg/dL [facility] PROTEIN, TOTAL 7.7 6.1 - 8.1 g/dL [facility] ALBUMIN 4.7 3.6 - 5.1 g/dL [facility] GLOBULIN 3.0 1.9 - 3.7 g/dL (calc) [facility] ALBUMIN/GLOBULI N RATIO 1.6 1.0 - 2.5 (calc) [facility] BILIRUBIN, TOTAL 0.4 0.2 - 1.2 mg/dL [facility] ALKALINE PHOSPHATASE 96 37 - 153 U/L [facility] AST 33 10 - 35 U/L [facility] ALT 52(H) 6 - 29 U/L [facility] Blood Blood / Unknown 12/24/2023 2 :05 PM EDT 12/24/2023 2:06 PM EDT Narrative [facility] - 12/26/2023 1:08 AM EDT FASTING:NO Gabbie Del Valle PA-C LAB - BLOOD DRAW Edited Resu lt - Final [facility] [address] [address], [facility] [address] [address] * HISTORIC MAMMOGRAM (11/07/2023 3:00 AM EDT) 11/07/2023 3:00 AM EDT us Gabbie Del Valle PA-C IMG MAMMO Final Result * THINPREP PAP & HPV MRNA E6/E7 RFLX HPV 16,18/[address]/NG (02/06/2023 10:22 AM EDT) CHLAMYDIA TRACHOMATIS RNA, TMA NOT DETECTED NOT DETECTED [facility] NEISSERIA GONORRHOEAE RNA, TMA NOT DETECTED NOT DETECTED [facility] COMMENT [facility] CLINICAL INFORMATION See Note [facility] Comment:ROUTINE EXAM LMP See Note [facility] Comment:POSTMENOPAUSAL PREV. PAP See Note [facility] Comment:NONE GIVEN PREV. BX See Note [facility] Comment:NONE GIVEN SOURCE See Note [facility] Comment:Cervix STATEMENT OF ADEQUACY See Note [facility] Comment:SATISFACTORY FOR LONNIE LUATION INTERPRETATION/RESU LT See Note [facility] Comment: Cytology Results: Negative for intraepithelial lesion or malignancy. Atrophic pattern; predominantly parabasal cells PHYSICAL SECURITY MANAGER See Note [facility] Comment: YP, CT(ASCP) CT screening location: [address] ??[address] REVIEW PHYSICAL SECURITY MANAGER See Note [facility] Comment: BLC,CT(ASCP) CT screening location: [address] ??[address] COMMENT [facility] HPV MRNA E6/E7 Not Detected Not Detected [facility] Comment: Methodology: Medical Doctor Md-Mediated Amplification This assay detects E6/E7 viral messenger RNA (mRNA) from 14 high-risk HPV types (16,18,31,33,35,39,45,51,52,56,58,59,66,68). Cervical sources are required for HPV testing. If a vaginal source from a patient who has had a total hysterectomy with removal of cervix was submitted, please contact the testing laboratory for alternative testing options. For additional information, please refer to http://education.ngmoco/faq/OJN597z7 (This link if provided for information/ educational purposes only.) CYTOLOGY Cervix uteri structure / Unknown 02/06/2023 10:22 AM EDT 02/08/2023 3:44 AM EDT Narrative [facility] - 02/13/2023 4:00 PM EDT EXPLANATORY NOTE: The Pap is a screening test for cervical cancer. It is not a diagnostic test and is subject to false negative and false positive results. It is most reliable when a satisfactory sample, regularly obtained, is submitted with relevant clinical findings and history, and when the Pap result is evaluated along with historic and current clinical information. The analytical performance characteristics of this assay, when used to test SurePath(TM) specimens have been determined by [employer]. The modifications have not been cleared or approved by the FDA. This assay has been validated pursuant to the CLIA regulations and is used for clinical purposes. For additional information, please refer to https://[employer] [place].ngmoco/faq/FBH921 (This link is being provided for information/ educational purposes only.) Nazanin Campoverde MD LAB - NO BLOOD DRAW Final Result Performing Organization Address [facility]/ZIP Co de Phone Number [facility] [address] [address], [facility] [address] [address] * HEPATITIS C AB W/RFLX HCV RNA, QT, RT PCR (09/26/2021 10:36 AM EDT) Pathologist [facility] HEPATITIS C ANTIBODY NON-REACT EVERARDO NON-REACT EVERARDO [facility] SIGNAL TO CUT-OFF 0.02 <1.00 [facility] [place] [facility] Comment: HCV antibody was non-reactive. There is no laboratory evidence of HCV infection. In most cases, no further action is required. However, if recent HCV exposure is suspected, a test for HCV RNA (test code 04667) is suggested. For additional information please refer to http://[employer] [place].ngmoco/faq/PUE91v7 (This link is being provided for informational/ educational purposes only.) Blood Blood / Unknown 09/26/2021 1 0:36 AM EDT 09/26/2021 10:37 AM EDT Gabbie Del Valle PA-C LAB - BLOOD DRAW Edited Resu lt - Final Performing Organization Address [facility]/ZIP Co de Phone Number [facility] [address] [address], [facility] [address],[facility] [place] [address] * HIV 1/2 AG & AB W/RFLX (4TH GEN) (09/26/2021 10:36 AM EDT) Pathologist [facility] HIV AG/AB, 4TH GEN NON-REAC TIVE NON-REAC TIVE [facility] Comment: HIV-1 antigen and HIV-1/HIV-2 antibodies were not detected. There is no laboratory evidence of HIV infection. PLEASE NOTE: This information has been disclosed to you from records whose confidentiality may be protected by state law. ??If your state requires such protection, then the state law prohibits you from making any further disclosure of the information without the specific written consent of the person to whom it pertains, or as otherwise permitted by law. A general authorization for the release of medical or other information is NOT sufficient for this purpose. ?? For additional information please refer to http://education.ngmoco/faq/KEV301 (This link is being provided for informational/ educational purposes only.) The performance of this assay has not been clinically validated in patients less than 2 years old. Blood Blood / Unknown 09/26/2021 1 0:36 AM EDT 09/26/2021 10:37 AM EDT Gabbie Del Valle PA-C LAB - BLOOD DRAW Final Resul t [facility] [address] [address], [facility] [address] [address] from Last 3 Months or Most Recently Relevant to Health Maintenance Insurance [facility] [employer] Member Subscriber Plan / Payer (Ef fective 2024-Present) Name:Anna Dickens Relation to Subscriber:Self Name:Anna Dickens Payer ID:[id number] Group ID:Not on file Type:Medicaid Address: [facility] [address] [place] [address] Care Teams Pulp Screen Operator Relationship Specialty Start Date End Date Gabbie Del Valle PA-C [employer] [place] [address] PCP - General Internal Medicine 07/24/21
== END 2024-06-15 10:45 | disposition home or self-care (01) ==
LOC: HO.HWS 09:16
PROVIDERS: PCP Physician Assistant; Visit Provider Obstetrics & Gynecology
DX: R93.5 Abnormal findings on diagnostic imaging of other abdominal regions, including retroperitoneum (principal); D21.9 Benign neoplasm of connective and other soft tissue, unspecified
CPT/HCPCS: 99203

== ENCOUNTER 2024-06-15 09:16 | Outpatient (REF) | payer OTHER, SELFPAY ==
--- OUTSIDE RECORDS SUMMARY | 2024-06-15 13:11 | XMS_ITS | Clinical Summary ---
Author Organization [facility] Address [address] [place] [address] Care Team Providers Care Dining Room Attendant Name Role Phone Morelia Astudillo MD Primary Care Provider [phone] Surgical History Surgery Date Site/Laterality Comments COLONOSCOPY [...] volving multiple joints; COMMENT: Folows with rheumatology [place] Fibromyalgia 02/03/2019 DX:Fibromyalgia; COMMENT: Follows with rheumatology [...] RESULTING AGENCY - 02/20/2018 8:17 AM EST [id number] THINPREP PAP, IMAGED: NEGATIVE FOR SQUAMOUS INTRAEPITHELIAL [...] Recently Relevant to Health Maintenance Care Teams Dining Room Attendant Relationship Specialty Start Date End Date Morelia Astudillo MD [address] [place] [id number] PCP - General Internal Medicine 03/19/19
--- OUTSIDE RECORDS SUMMARY | 2024-06-15 13:11 | XMS_ITS | Clinical Summary ---
Author Organization [facility] Address [address] [place] [address] Care Team Providers Care Licensed Psychologist Manager Name Role Phone Gabbie Del Valle PA-C Primary Care Provider [phone] Source Comments PLEASE NOTE, if this patient [...] Description 05/10/2024 11:40 AM EST Telemedicine Visit [address] [address] Gabbie Del Valle PA-C Abnormal endometrial ultrasound (Primary Dx); Pelvic pain 03/24/2024 1:20 PM EST Office Visit [address] [address] Gabbie Del Valle PA-C Hypertension, essential (Primary [...] 2008 Fecal DNA 2008 Flexible Sigmoidoscopy 2008 [id number] ( season) 2023 04/02/2021, 07/31/2020, 07/01/2020 Imm-Influenza [...] PM EDT) CHOLESTEROL, TOTAL 241(H) <200 mg/dL [facility] HDL CHOLESTEROL 49(L) > OR = 50 mg/dL [facility] TRIGLYCERIDES 110 <150 mg/dL [facility] LDL-CHOLESTEROL 168(H) 99 mg/dL (calc) [facility] Comment: Reference range: <100 Desirable range <100 mg/dL for primary prevention; ?? <70 mg/dL for patients with CHD or diabetic patients with > or = 2 CHD risk factors. LDL-C is now calculated using the Juan Manuel calculation, which is a validated novel method providing better accuracy than the Friedewald equation in the estimation of LDL-C. Ahmet LOCKE et al. SURINDER. 2013;310(19): 6506-0922 (http://education.View2Gether/faq/FCA721) CHOL/HDLC RATIO 4.9 <5.0 (calc) [facility] NON-HDL CHOLESTEROL 192(H) <130 mg/dL (calc) [facility] Comment: For patients with diabetes plus 1 major ASCVD risk factor, treating to a non-HDL-C goal of <100 mg/dL (LDL-C of <70 mg/dL) is considered a therapeutic option. Blood Blood / Unknown 12/24/2023 2 :05 PM EDT 12/24/2023 2:06 PM EDT Narrative [facility] - 12/26/2023 1:08 AM EDT FASTING:NO us Gabbie Del Valle PA-C LAB - BLOOD DRAW Final Resul t [facility] [address] [address], [facility] [address] [place] [address] * (ABNORMAL) COMPREHENSIVE METABOLIC PANEL (12/24/2023 2:05 PM EDT) [facility] GLUCOSE 79 65 - 139 mg/dL [facility] Comment: ?Non-fasting reference interval UREA NITROGEN (BUN) 16 7 - 25 mg/dL [facility] CREATININE (blood) 0.75 0.50 - 1.05 mg/dL [facility] EGFR 91 > OR = 60 mL/min/1. 73m2 [facility] BUN/CREATININE RATIO SEE NOTE: [facility] Comment: ?? Not Reported: BUN and Creatinine are within ?? reference range. ? SODIUM 139 135 - 146 mmol/L [facility] POTASSIUM 4.4 3.5 - 5.3 mmol/L [facility] CHLORIDE 104 98 - 110 mmol/L [facility] CARBON DIOXIDE 26 20 - 32 mmol/L [facility] CALCIUM 10.1 8.6 - 10.4 mg/dL [facility] PROTEIN, TOTAL 7.7 6.1 - 8.1 g/dL [facility] ALBUMIN 4.7 3.6 - 5.1 g/dL [facility] GLOBULIN 3.0 1.9 - 3.7 g/dL (calc) [facility] ALBUMIN/GLOBULI N RATIO 1.6 1.0 - 2.5 (calc) [facility] BILIRUBIN, TOTAL 0.4 0.2 - 1.2 mg/dL [facility] ALKALINE PHOSPHATASE 96 37 - 153 U/L [facility] AST 33 10 - 35 U/L [facility] ALT 52(H) 6 - 29 U/L [facility] Blood Blood / Unknown 12/24/2023 2 :05 PM EDT 12/24/2023 2:06 PM EDT Narrative [facility] - 12/26/2023 1:08 AM EDT FASTING:NO Gabbie Del Valle PA-C LAB - BLOOD DRAW Edited Resu lt - Final [facility] [address] [address], [facility] [address] [address] * HISTORIC MAMMOGRAM (11/07/2023 3:00 AM EDT) 11/07/2023 3:00 AM EDT us Gabbie Del Valle PA-C IMG MAMMO Final Result * THINPREP PAP & HPV MRNA E6/E7 RFLX HPV 16,18/[address]/NG (02/06/2023 10:22 AM EDT) CHLAMYDIA TRACHOMATIS RNA, TMA NOT DETECTED NOT DETECTED [facility] NEISSERIA GONORRHOEAE RNA, TMA NOT DETECTED NOT DETECTED [facility] COMMENT [facility] CLINICAL INFORMATION See Note [facility] Comment:ROUTINE EXAM LMP See Note [facility] Comment:POSTMENOPAUSAL PREV. PAP See Note [facility] Comment:NONE GIVEN PREV. BX See Note [facility] Comment:NONE GIVEN SOURCE See Note [facility] Comment:Cervix STATEMENT OF ADEQUACY See Note [facility] Comment:SATISFACTORY FOR LONNIE LUATION INTERPRETATION/RESU LT See Note [facility] Comment: Cytology Results: Negative for intraepithelial lesion or malignancy. Atrophic pattern; predominantly parabasal cells BOARD SAW RUNNER See Note [facility] [employer] [facility] Comment: YP, CT(ASCP) CT screening location: [address] ??[address] REVIEW BOARD SAW RUNNER See Note [facility] Comment: BLC,CT(ASCP) CT screening location: [address] ??[address] COMMENT [facility] HPV MRNA E6/E7 Not Detected Not Detected [facility] Comment: Methodology: Roll Tension Tester-Mediated Amplification This assay detects E6/E7 viral messenger RNA (mRNA) from 14 high-risk HPV types (16,18,31,33,35,39,45,51,52,56,58,59,66,68). Cervical sources are required for HPV testing. If a vaginal source from a patient who has had a total hysterectomy with removal of cervix was submitted, please contact the testing laboratory for alternative testing options. For additional information, please refer to http://education.OuiCar/faq/NQG648j8 (This link if provided for information/ educational purposes only.) CYTOLOGY Cervix uteri structure / Unknown 02/06/2023 10:22 AM EDT 02/08/2023 3:44 AM EDT Narrative [facility] - 02/13/2023 4:00 PM EDT EXPLANATORY NOTE: [...] test SurePath(TM) specimens have been determined by [employer]. The modifications have not been cleared or approved by the FDA. This assay has been validated pursuant to the CLIA regulations and is used for clinical purposes. For additional information, please refer to https://[employer].OuiCar/faq/PYK719 (This link is being provided for information/ educational purposes only.) Nazanin Campoverde MD LAB - NO BLOOD DRAW Final Result Performing Organization Address [facility]/ZIP Co de Phone Number [facility] [address] [address], [facility] [address] [address] * HEPATITIS C AB W/RFLX HCV RNA, QT, RT PCR (09/26/2021 10:36 AM EDT) Pathologist [facility] [place] HEPATITIS C ANTIBODY NON-REACT EVERARDO NON-REACT EVERARDO [facility] SIGNAL TO CUT-OFF 0.02 <1.00 [facility] [place] [employer] Comment: HCV antibody was non-reactive. There is no laboratory evidence of HCV infection. In most cases, no further action is required. However, if recent HCV exposure is suspected, a test for HCV RNA (test code 53788) is suggested. For additional information please refer to http://[employer].OuiCar/faq/YMN47s2 (This link is being provided for informational/ educational purposes only.) Blood Blood / Unknown 09/26/2021 1 0:36 AM EDT 09/26/2021 10:37 AM EDT Gabbie Del Valle PA-C LAB - BLOOD DRAW Edited Resu lt - Final Performing Organization Address [facility]/ZIP Co de Phone Number [facility] [address] [address], [facility] [address],[facility] [address] * HIV 1/2 AG & AB W/RFLX (4TH GEN) (09/26/2021 10:36 AM EDT) Pathologist [facility] [place] HIV AG/AB, 4TH GEN NON-REAC TIVE NON-REAC TIVE [facility] Comment: HIV-1 antigen and HIV-1/HIV-2 antibodies were [...] ?? For additional information please refer to http://education.OuiCar/faq/EJP046 (This link is being provided for informational/ educational purposes only.) The performance of this assay has not been clinically validated in patients less than 2 years old. Blood Blood / Unknown 09/26/2021 1 0:36 AM EDT 09/26/2021 10:37 AM EDT Gabbie Del Valle PA-C LAB - BLOOD DRAW Final Resul t [facility] [place] [employer] [address] [address], [email or web address] [facility] [address] [address] from Last 3 Months or Most Recently Relevant to Health Maintenance Insurance [facility] Member Subscriber Plan / Payer (Ef fective 2024-Present) Name:Anna Dickens Relation to Subscriber:Self Name:Anna Dickens Payer ID:[id number] Group ID:Not on file Type:Medicaid Address: [facility] [address] [place] [address] Care Teams Licensed Psychologist Manager Relationship Specialty Start Date End Date Gabbie Del Valle PA-C [facility] [place] [address] PCP - General Internal Medicine 07/24/21
[2024-06-18 14:56] LABS: HPV Genotype 16 Negative (Negative); HPV Genotype 18 Negative (Negative); HPV High Risk Negative (Negative)
== END 2024-06-15 09:17 | disposition home or self-care (01) ==
LOC: HO.LNP 09:16
PROVIDERS: PCP Physician Assistant; Visit Provider Obstetrics & Gynecology
DX: D21.9 Benign neoplasm of connective and other soft tissue, unspecified (principal); R93.5 Abnormal findings on diagnostic imaging of other abdominal regions, including retroperitoneum
CPT/HCPCS: 87626; 88175; 99202

== ENCOUNTER 2024-06-17 11:28 | Day surgery (SDC) | payer OTHER, SELFPAY ==
--- OUTSIDE RECORDS SUMMARY | 2024-06-15 16:38 | XMS_ITS | Clinical Summary ---
Author Organization [employer] [facility] Address [address] [place] [address] Care Team Providers Care Procedure Manager Name Role Phone Morelia Astudillo MD Primary Care Provider [phone] Surgical History Surgery Date Site/Laterality Comments COLONOSCOPY [...] volving multiple joints; COMMENT: Folows with rheumatology [place] Fibromyalgia 02/03/2019 DX:Fibromyalgia; COMMENT: Follows with rheumatology [...] RESULTING AGENCY - 02/20/2018 8:17 AM EST [id number] THINPREP PAP, IMAGED: NEGATIVE FOR SQUAMOUS INTRAEPITHELIAL [...] Recently Relevant to Health Maintenance Care Teams Procedure Manager Relationship Specialty Start Date End Date Morelia Astudillo MD [address] [place] [address] PCP - General Internal Medicine 03/19/19
--- OUTSIDE RECORDS SUMMARY | 2024-06-15 16:38 | XMS_ITS | Clinical Summary ---
Author Organization [facility] Address [address] [place] [address] Care Team Providers Care Manager Services Name Role Phone Gabbie Del Valle PA-C Primary Care Provider [phone] Source Comments PLEASE NOTE, if this patient [...] Description 05/10/2024 11:40 AM EST Telemedicine Visit [address] [address] Gabbie Del Valle PA-C Abnormal endometrial ultrasound (Primary Dx); Pelvic pain 03/24/2024 1:20 PM EST Office Visit [address] [address] Gabbie Del Valle PA-C Hypertension, essential (Primary [...] 2008 Fecal DNA 2008 Flexible Sigmoidoscopy 2008 [id number]-24 ( season) 2023 04/02/2021, 07/31/2020, 07/01/2020 Imm-Influenza [...] PM EDT) CHOLESTEROL, TOTAL 241(H) <200 mg/dL [facility] HDL CHOLESTEROL 49(L) > OR = 50 mg/dL [facility] TRIGLYCERIDES 110 <150 mg/dL [facility] LDL-CHOLESTEROL 168(H) 99 mg/dL (calc) [facility] [facility] Comment: Reference range: <100 Desirable range <100 mg/dL for primary prevention; ?? <70 mg/dL for patients with CHD or diabetic patients with > or = 2 CHD risk factors. LDL-C is now calculated using the Juan Manuel calculation, which is a validated novel method providing better accuracy than the Friedewald equation in the estimation of LDL-C. Ahmet LOCKE et al. SURINDER. 2013;310(19): 8775-5290 (http://education.Fundación Bases/faq/VHO075) CHOL/HDLC RATIO 4.9 <5.0 (calc) [facility] NON-HDL CHOLESTEROL 192(H) <130 mg/dL (calc) [facility] Comment: For patients with diabetes plus 1 major ASCVD risk factor, treating to a non-HDL-C goal of <100 mg/dL (LDL-C of <70 mg/dL) is considered a therapeutic option. Blood Blood / Unknown 12/24/2023 2 :05 PM EDT 12/24/2023 2:06 PM EDT Narrative [facility] - 12/26/2023 1:08 AM EDT FASTING:NO us Gabbie Del Valle PA-C LAB - BLOOD DRAW Final Resul t [facility] [address] [address], [facility] [address] [place] [address] * (ABNORMAL) COMPREHENSIVE METABOLIC PANEL (12/24/2023 2:05 PM EDT) [facility] GLUCOSE 79 65 - 139 mg/dL [facility] Comment: ?Non-fasting reference interval UREA NITROGEN (BUN) 16 7 - 25 mg/dL [facility] CREATININE (blood) 0.75 0.50 - 1.05 mg/dL [facility] EGFR 91 > OR = 60 mL/min/1. 73m2 [facility] BUN/CREATININE RATIO SEE NOTE: [facility] Comment: ?? Not Reported: BUN and Creatinine are within ?? reference range. ? SODIUM 139 135 - 146 mmol/L [facility] POTASSIUM 4.4 3.5 - 5.3 mmol/L [facility] CHLORIDE 104 98 - 110 mmol/L [employer] [facility] CARBON DIOXIDE 26 20 - 32 mmol/L [employer] [facility] CALCIUM 10.1 8.6 - 10.4 mg/dL [employer] [facility] [facility] PROTEIN, TOTAL 7.7 6.1 - 8.1 g/dL [employer] [facility] [facility] ALBUMIN 4.7 3.6 - 5.1 g/dL [employer] [facility] [facility] GLOBULIN 3.0 1.9 - 3.7 g/dL (calc) [employer] [facility] ALBUMIN/GLOBULI N RATIO 1.6 1.0 - 2.5 (calc) [employer] [facility] [facility] BILIRUBIN, TOTAL 0.4 0.2 - 1.2 mg/dL [employer] [facility] [facility] ALKALINE PHOSPHATASE 96 37 - 153 U/L [employer] [facility] [facility] AST 33 10 - 35 U/L [employer] [facility] [facility] ALT 52(H) 6 - 29 U/L [employer] Blood Blood / Unknown 12/24/2023 2 :05 PM EDT 12/24/2023 2:06 PM EDT Narrative [facility] - 12/26/2023 1:08 AM EDT FASTING:NO Gabbie Del Valle PA-C LAB - BLOOD DRAW Edited Resu lt - Final [facility] [employer] [address] [address], [employer] [address] [address] * HISTORIC MAMMOGRAM (11/07/2023 3:00 AM EDT) 11/07/2023 3:00 AM EDT us Gabbie Del Valle PA-C IMG MAMMO Final Result * THINPREP PAP & HPV MRNA E6/E7 RFLX HPV 16,18/[address]/NG (02/06/2023 10:22 AM EDT) CHLAMYDIA TRACHOMATIS RNA, TMA NOT DETECTED NOT DETECTED [facility] [facility] [facility] NEISSERIA GONORRHOEAE RNA, TMA NOT DETECTED NOT DETECTED [employer] [facility] [facility] COMMENT [employer] [facility] CLINICAL INFORMATION See Note [employer] [facility] Comment:ROUTINE EXAM LMP See Note [employer] [facility] Comment:POSTMENOPAUSAL PREV. PAP See Note [employer] [facility] Comment:NONE GIVEN PREV. BX See Note [employer] [facility] Comment:NONE GIVEN SOURCE See Note [employer] [facility] Comment:Cervix STATEMENT OF ADEQUACY See Note [employer] [facility] Comment:SATISFACTORY FOR LONNIE LUATION INTERPRETATION/RESU LT See Note [employer] [facility] Comment: Cytology Results: Negative for intraepithelial lesion or malignancy. Atrophic pattern; predominantly parabasal cells SCIENTIFIC MANAGER See Note [facility] [employer] [facility] Comment: YP, CT(ASCP) CT screening location: [address] ??[address] REVIEW SCIENTIFIC MANAGER See Note [employer] [facility] Comment: BLC,CT(ASCP) CT screening location: [address] ??[address] COMMENT [employer] [facility] HPV MRNA E6/E7 Not Detected Not Detected [employer] [facility] Comment: Methodology: Machine Pan Greaser-Mediated Amplification This assay detects E6/E7 viral messenger RNA (mRNA) from 14 high-risk HPV types (16,18,31,33,35,39,45,51,52,56,58,59,66,68). Cervical sources are required for HPV testing. If a vaginal source from a patient who has had a total hysterectomy with removal of cervix was submitted, please contact the testing laboratory for alternative testing options. For additional information, please refer to http://education.Pyrolia/faq/ZTK630m4 (This link if provided for information/ educational purposes only.) CYTOLOGY Cervix uteri structure / Unknown 02/06/2023 10:22 AM EDT 02/08/2023 3:44 AM EDT Narrative [facility] [facility] - 02/13/2023 4:00 PM EDT EXPLANATORY [...] test SurePath(TM) specimens have been determined by [employer]. The modifications have not been cleared or approved by the FDA. This assay has been validated pursuant to the CLIA regulations and is used for clinical purposes. For additional information, please refer to https://[employer]Gain [employer].Pyrolia/faq/DHJ422 (This link is being provided for information/ educational purposes only.) Nazanin Campoverde MD LAB - NO BLOOD DRAW Final Result Performing Organization Address [facility]/ZIP Co de Phone Number [employer] [address] [address], [employer] [address] [address] * HEPATITIS C AB W/RFLX HCV RNA, QT, RT PCR (09/26/2021 10:36 AM EDT) Pathologist [facility] HEPATITIS C ANTIBODY NON-REACT EVERARDO NON-REACT EVERARDO [employer] [facility] SIGNAL TO CUT-OFF 0.02 <1.00 [employer] [place] [employer] Comment: HCV antibody was non-reactive. There is no laboratory evidence of HCV infection. In most cases, no further action is required. However, if recent HCV exposure is suspected, a test for HCV RNA (test code 11654) is suggested. For additional information please refer to http://[employer]Gain [employer].Pyrolia/faq/JSD91t7 (This link is being provided for informational/ educational purposes only.) Blood Blood / Unknown 09/26/2021 1 0:36 AM EDT 09/26/2021 10:37 AM EDT Gabbie Del Valle PA-C LAB - BLOOD DRAW Edited Resu lt - Final Performing Organization Address [facility]/ZIP Co de Phone Number [employer] [address] [address], [employer] [address],[facility] [place] [address] * HIV 1/2 AG & AB W/RFLX (4TH GEN) (09/26/2021 10:36 AM EDT) Pathologist [facility] HIV AG/AB, 4TH GEN NON-REAC TIVE NON-REAC TIVE [employer] [facility] Comment: HIV-1 antigen and HIV-1/HIV-2 antibodies [...] ?? For additional information please refer to http://education.Pyrolia/faq/MUM520 (This link is being provided for informational/ educational purposes only.) The performance of this assay has not been clinically validated in patients less than 2 years old. Blood Blood / Unknown 09/26/2021 1 0:36 AM EDT 09/26/2021 10:37 AM EDT Gabbie Del Valle PA-C LAB - BLOOD DRAW Final Resul t [facility] [place] [employer] [address] [address], [employer] [facility] [address] [address] from Last 3 Months or Most Recently Relevant to Health Maintenance Insurance [id number] Member Subscriber Plan / Payer (Ef fective 2024-Present) Name:Anna Dickens Relation to Subscriber:Self Name:Anna Dickens Payer ID:[id number] Group ID:Not on file Type:Medicaid Address: [facility] [address] [place] [address] Care Teams Manager Services Relationship Specialty Start Date End Date Gabbie Del Valle PA-C [facility] [place] [address] PCP - General Internal Medicine 07/24/21
--- NOTE | 2024-06-16 10:35 | HO.ANESPROP2 ---
Documented by User: Priya Martin NP 06/16/24 10:35 HPI - Anesthesia Eval Consult details Narrative: 59yo F for D&C Diagnostic Hysteroscopy,possible polypectomy,possible myomectomy PMFSH Active Problems Active Problems: All Active Problems Myoma (Acute) Past Medical History Medical History Breast cancer Fibromyalgia GERD (gastroesophageal reflux disease) HTN (hypertension) Family History Family History Mother HTN (hypertension) Father HTN (hypertension) Heart attack Maternal Aunt Breast cancer Maternal Uncle Colon cancer Paternal Grandmother Uterus cancer Surgical History Surgical History Hx of tubal ligation History of bladder surgery Hx of breast surgery Hx of cholecystectomy Social History Social History Household Members: None Housing: House Alcohol intake: never Patient Tobacco Use Status: Never used Tobacco Advance Directives: No Advance Directives Information Provided: Yes Current occupational status: employed 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 Sexual orientation: Straight/Heterosexual Gender identity: Female Meds Allergies Allergy/AdvReac Type Severity Reaction Status Date / Time codeine Allergy Intermediate Vomiting Verified 06/17/24 13:09 latex Allergy Intermediate Rash Verified 06/17/24 13:09 morphine Allergy Unknown Unknown Verified 06/17/24 13:09 Home Medications ?Medication ?Instructions ?Recorded ?Confirmed ?Last Taken ?Type loratadine 10 mg tablet 10 mg PO DAILY 06/15/24 06/17/24 06/15/24 History losartan 100 mg tablet 100 mg PO DAILY 06/15/24 06/17/24 06/17/24 History meloxicam 15 mg tablet 15 mg PO DAILY 06/15/24 06/17/24 06/15/24 History omeprazole 20 mg capsule,delayed 20 mg PO DAILY 06/15/24 06/17/24 06/15/24 History release Assessment and Plan Assessment Anesthesia Assessment: Chart Reviewed Documented by User: Christina Hess MD 06/17/24 13:40 PMFSH Active Problems Active Problems: All Active Problems Myoma (Acute) HTN Past Medical History Medical History Breast cancer Fibromyalgia GERD (gastroesophageal reflux disease) HTN (hypertension) Family History Family History Mother HTN (hypertension) Father HTN (hypertension) Heart attack Maternal Aunt Breast cancer Maternal Uncle Colon cancer Paternal Grandmother Uterus cancer Family history of problems with anesthesia: No Surgical History Surgical History Hx of tubal ligation History of bladder surgery Hx of breast surgery Hx of cholecystectomy History of Problems with Anesthesia: Yes (PONV) Social History Social History Household Members: None Housing: House Alcohol intake: never Patient Tobacco Use Status: Never used Tobacco Advance Directives: No Advance Directives Information Provided: Yes Current occupational status: employed 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 Sexual orientation: Straight/Heterosexual Gender identity: Female Meds Allergies Allergy/AdvReac Type Severity Reaction Status Date / Time codeine Allergy Intermediate Vomiting Verified 06/17/24 13:09 latex Allergy Intermediate Rash Verified 06/17/24 13:09 morphine Allergy Unknown Unknown Verified 06/17/24 13:09 Home Medications ?Medication ?Instructions ?Recorded ?Confirmed ?Last Taken ?Type loratadine 10 mg tablet 10 mg PO DAILY 06/15/24 06/17/24 06/15/24 History losartan 100 mg tablet 100 mg PO DAILY 06/15/24 06/17/24 06/17/24 History meloxicam 15 mg tablet 15 mg PO DAILY 06/15/24 06/17/24 06/15/24 History omeprazole 20 mg capsule,delayed 20 mg PO DAILY 06/15/24 06/17/24 06/15/24 History release Exam Height,Weight and Vital Signs: Height 5 ft 4 in Weight 80 kg Vital Signs Temp Pulse Resp BP Pulse Ox O2 Del Method 06/17/24 13:02 97.9 F 69 14 147/79 H 97 Room Air Airway Mallampati Class: II TM Dist: >3cm Neck ROM: Full Loose/Missing/Broken Teeth: Yes (Some extractions. Denies broken or loose teeth) Heart: RRR Lungs: CTAB Assessment and Plan Assessment Anesthesia Assessment: Anesthesia Plan Discussed and Chart Reviewed Final Anesthetic Review Family History of Problems with Anesthesia: No History of Problems with Anesthesia: Yes (PONV) NPO: Yes ASA Class: II Final Preanesthetic Review: No Changes in Pt Med Stat, Meds/Allgs Chart Reviewed, Consent Obtained/Reviewed and Anes Risks/Benef Reviewed Patient Risk: Low Procedure Risk: Low Assessment/Block/Sedation in SS: Assess/Block/Sedation-SS Anesthetic Plan Anesthetic Plan: GA Disposition: Standard PACU
[2024-06-17] VITALS (9 sets, daily range): BP systolic 127–151; BP diastolic 68–82; PULSE 63–80; RESP 14–18; TEMP 36.1–36.6; O2SAT 95–100; BMI 30.3
[2024-06-17] MEDS: Lactated Ringers 1,000 ML 100 ML IVCONT (13:04)
--- NOTE | 2024-06-17 13:41 | MHC.SHP ---
Pre-Procedural Eval Section A - 24 Hr Update-Section A only Date of Service: 06/17/24 Section B - Complete if H&P > 30 days Chief Complaint: Abnormal findings on diagnostic imaging Allergies: Allergies Allergy/AdvReac Type Severity Reaction Status Date / Time codeine Allergy Intermediate Vomiting Verified 06/17/24 13:09 latex Allergy Intermediate Rash Verified 06/17/24 13:09 morphine Allergy Unknown Unknown Verified 06/17/24 13:09 Plan I have reviewed the history and physical and performed a pertinent physical examination on my patient. No changes have occurred unless specified. Time Spent With Patient Time: Total time managing care of this patient today ____ minutes.
--- NOTE | 2024-06-17 14:16 | P.BOP_ITS ---
Brief Operative Note Date of Service: 06/17/24 Pre-op diagnosis: Abnormal endometrium by ultrasound Post-op diagnosis: same (Endometrial polyp) Procedure: Hysteroscopy D&C, Polypectomy Surgeon: Reid Sutherland MD Anesthesia: GLMA Was an Fine Arts Model used for this Procedure?: No Estimated blood loss (mL): 0 Pathology: other (Endometrial Scrapping. Polyp) Condition: stable Disposition: PACU
--- NOTE | 2024-06-17 14:16 | W.PM.OPN ---
Operative Note Operative Note Date of Service: 06/17/24 Narrative: Preop Diagnosis: Abnormal endometrium by US Operation: Diagnostic Hysteroscopy, Dilataion & Curettage and polypectomy Post Op Diagnosis: Endometrial Polyp QBL: Minimal Anesthesia: GLMA Surgeon: Reid Sutherland MD Evaluation Analyst: None Complication: None Pathology: Endometrial Scrapings, Endometrial polyp Procedure: The patient was put in the dorsal lithotomy position, scrubbed, and draped in the usual manner. A sterile speculum was inserted in the patient's vagina. The anterior lip of the cervix was grasped with a single tooth tenaculum. The cervix was dilated up to 5 mm, then the scope was inserted in the patient's uterus. Inspection revealed endometrial polyp. The Myosure Reach device was used; it was introduced through the operative channel and polypectomy done with no complications. The scope was then taken out from the uterine cavity, sharp curettings was carried on with minimal to moderate amount of tissues retrieved. At the end of the procedure, all instruments were taken out of the patient uterine and vaginal cavity. The single tooth tenaculum was removed and homeostasis was assured using pressure,. The patient tolerated the procedure well and was transferred to the PACU in a stable condition.
[2024-06-17] MEDS: oxyCODONE HCl Immed Release 5 MG TABLET PO (14:46)
== END 2024-06-17 15:47 | disposition home or self-care (01) ==
PROVIDERS: PCP Physician Assistant; Visit Provider Obstetrics & Gynecology
PROC: 0UDB8ZX Extraction of Endometrium, Via Natural or Artificial Opening Endoscopic, Diagnostic (ICD-10-PCS; CPT 58558; principal; 2024-06-17 13:30)
DX: N84.0 Polyp of corpus uteri (principal); I10 Essential (primary) hypertension; K21.9 Gastro-esophageal reflux disease without esophagitis; M79.7 Fibromyalgia; Z85.3 Personal history of malignant neoplasm of breast; Z88.5 Allergy status to narcotic agent; Z91.040 Latex allergy status; Z98.890 Other specified postprocedural states; Z90.49 Acquired absence of other specified parts of digestive tract
CPT/HCPCS: 58558; 88305; J0131; J1100; J1885; J2003; J2405; J2704; J3010

== ENCOUNTER → 2024-06-17 11:28 | Outpatient (BNV) | payer OTHER, SELFPAY | PROVIDERS: PCP Physician Assistant; Visit Provider Obstetrics & Gynecology | DX: R84.4 Abnormal immunological findings in specimens from respiratory organs and thorax (principal); N84.0 Polyp of corpus uteri | CPT/HCPCS: 58558 ==

== ENCOUNTER 2024-06-24 13:00 | Outpatient (REF) | payer OTHER, SELFPAY ==
--- NOTE | ~2024-06-24 | MR_ITS ---
EXAMINATION: MR PELVIS WITHOUT THEN WITH IV CONTRAST HISTORY: D21.9 - Benign neoplasm of connective and other soft tissue, unspecified. TECHNIQUE: Axial T1 and T2, coronal fat suppressed T2, and sagittal T2-weighted MR images of the pelvis were obtained. Subsequently, axial fat-suppressed T1-weighted images were obtained after the intravenous administration of 8 mm Gadavist. Postcontrast sagittal fat-suppressed T1-weighted images were also obtained. COMPARISON: Correlation is made with a pelvic ultrasound dated 10/07/2023. FINDINGS: There is a 1.5 cm hypointense intramural mass at the posterior aspect of the cervix, consistent with a fibroid. This corresponds to the mass noted on ultrasound. There is cystic hyperplasia of the cervical mucosa. The junctional zone of the uterus is not thickened. There is a 9 mm fibroid involving the posterior uterine wall and a subcentimeter fibroid involving the anterior wall. The ovaries are unremarkable in appearance, demonstrating small follicles. No ascites or pelvic lymphadenopathy is identified. The urinary bladder is collapsed. The visualized bones demonstrate normal signal intensity. MR/MR pelvis wo/w con IMPRESSION: 1. 1.5 cm posterior cervical fibroid. 2. Additional subcentimeter fibroids involving the uterine body. 2. Cystic hyperplasia of the cervical mucosa. Correlation with results of recent hysteroscopy is recommended. Electronically signed by: Bret Paz MD 06/24/2024 02:34 PM EDT
[2024-06-24] MEDS: gadobutroL 10 ML VIAL IVPUSH (14:05)
--- OUTSIDE RECORDS SUMMARY | 2024-06-24 16:21 | XMS_ITS | Clinical Summary ---
Author Organization [employer] [facility] Address [address] [place] [address] Care Team Providers Care Dyer And Washer Name Role Phone Morelia sAtudillo MD Primary Care Provider [phone] Surgical History Surgery Date Site/Laterality Comments COLONOSCOPY [...] volving multiple joints; COMMENT: Folows with rheumatology [place] Fibromyalgia 02/03/2019 DX:Fibromyalgia; COMMENT: Follows with rheumatology [...] RESULTING AGENCY - 02/20/2018 8:17 AM EST [id number] THINPREP PAP, IMAGED: NEGATIVE FOR SQUAMOUS INTRAEPITHELIAL [...] Recently Relevant to Health Maintenance Care Teams Dyer And Washer Relationship Specialty Start Date End Date Morelia Astudillo MD [address] [place] [id number] PCP - General Internal Medicine 03/19/19
== END 2024-06-24 13:01 | disposition home or self-care (01) ==
LOC: HO.MRI 13:00
PROVIDERS: PCP Physician Assistant; Visit Provider Obstetrics & Gynecology
DX: D21.9 Benign neoplasm of connective and other soft tissue, unspecified (principal)
CPT/HCPCS: 72197; A9585

== ENCOUNTER → 2024-06-24 13:12 | Outpatient (BNV) | payer OTHER, SELFPAY | PROVIDERS: PCP Physician Assistant; Visit Provider Radiology Diagnostic Radiology | DX: D25.0 Submucous leiomyoma of uterus (principal); N88.8 Other specified noninflammatory disorders of cervix uteri | CPT/HCPCS: 72197 ==

== ENCOUNTER 2024-07-08 10:08 | Outpatient (AMB) | payer OTHER, SELFPAY ==
--- NOTE | 2024-07-08 10:26 | MHC.OFFVIS ---
Vital Signs 07/08/24 10:29 Height 5 ft 4.5 in Weight 176 lb BMI 29.7 BP 144/92 H Intake Visit Reasons: post op Diesel Truck Crane Operator Required: Yes Diesel Truck Crane Operator Language: Iron Piler Services: Diesel Truck Crane Operator Present (in person) Diesel Truck Crane Operator Name: Marisela GA Information Interpreted: non-clinical & clinical Accompanied by: Self / Same As Patient Allergies codeine Allergy (Intermediate, Verified 07/08/24 10:30) Vomiting latex Allergy (Intermediate, Verified 07/08/24 10:30) Rash morphine Allergy (Unknown, Verified 07/08/24 10:30) Unknown Post menopausal: Yes HPI Comments Details: The patient is presenting post hysteroscopy D&C no complaints minimal vaginal bleeding no feverishness chills or abdominal pain. The pathology showed the following: A. Endometrium, polypectomy: Fragments of endometrial polyp; no atypia identified. B. Endometrium, curettage: Superficial strips of inactive endometrium; no atypia or hyperplasia identified. Pelvic ultrasound done in 10/05 showed the following: Anteverted and anteflexed uterus measuring 8.6 x 3.9 x 4.4 cm. There is a 0.8 x 0.6 x 0.8 cm intramural posterior uterine lesion, most likely representing a fibroid. There is a 1.3 x 1.3 x 1.4 centimeters indeterminate intramural lesion in the cervix. The endometrium is heterogeneous with combination of solid and cystic appearing contents, measuring up to 0.6 cm in thickness. The ovaries are normal in morphology with preserved flow at the moment of this examination. The right ovary measures 1.5 x 1.2 x 1.6 cm, 1.5 mL. The left ovary measures 1.9 x 1.5 x 2.2 cm, 3.3 mL. No significant amount of free fluid. [facility] Medical History Breast cancer Fibromyalgia GERD (gastroesophageal reflux disease) HTN (hypertension) Surgical History Hx of tubal ligation History of bladder surgery Hx of breast surgery Hx of cholecystectomy Family History Mother HTN (hypertension) Father HTN (hypertension) Heart attack Maternal Aunt Breast cancer Maternal Uncle Colon cancer Paternal Grandmother Uterus cancer Social History Household Members: None Housing: House Are you a primary rn care transition to a significant other at home: No Do you presently have visiting nurse or other home services: No Alcohol intake: never Patient Tobacco Use Status: Never used Tobacco Current occupational status: employed 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 Sexual orientation: Straight/Heterosexual Gender identity: Female Review of Systems Const All systems reviewed & are unremarkable except as noted in HPI and below Reports as per HPI and Reports no additional complaints GI Reports no additional complaints Reports no additional complaints Physical Exam Vital Signs: Last Vital Signs BP 144/92 H 07/08/24 10:29 BMI result Body Mass Index 29.7 Assessment & Plan Assessment & Plan (1) Abnormal ultrasound of endometrium: Code(s): R93.5 - Abnormal findings on diagnostic imaging of other abdominal regions, including retroperitoneum Category: Medical Plan: Discussed with the patient intraoperative findings, endometrial polyp, pathology finding. Instructions given to patient to call in case of pelvic pain, vaginal bleeding, fever above 100.4, nausea or vomiting or any other concerns. All questions answered, the patient verbalized understanding (2) Myoma: Code(s): D21.9 - Benign neoplasm of connective and other soft tissue, unspecified Category: Medical Plan: Discussed with the patient the findings on pelvic ultrasound & the risk of myosarcoma; in addition reviewed with the patient that malignancy and pre malignancy cannot be ruled out without hysterectomy for pathological evaluation ; furthermore, explained to the patient the limitation of pelvic ultrasound and endometrial biopsy in the setting. Discussed with the patient the options of treatment including expectant management versus hysterectomy; the pros and cons, risks benefits of each approach were discussed with the patient including the fact that in cases of myosarcoma, surgical treatment can lead to early diagnosis and positively affects the prognosis; after further discussion, the patient decided to proceed with expectant management. Will repeat pelvic ultrasound periodically. Instructions given to patient to call in case any of the following occurs: pressure symptoms, abnormal uterine bleeding, pelvic pain; and to schedule a six-months pelvic ultrasound (order placed) and a follow-up appointment . All questions answered, the patient verbalized understanding and agreed with the plan . Orders: Orders US pelvic and transvaginal 6 Months D21.9 - Benign neoplasm of connective and other soft tissue, unspecified Coding Level of Care Code Est Pt Level 3 (21977) Diagnoses Abnormal ultrasound of endometrium R93.5 Myoma D21.9
[2024-07-08 10:29] VITALS: BP 144/92; BMI 29.7
--- OUTSIDE RECORDS SUMMARY | 2024-07-08 12:55 | XMS_ITS | Clinical Summary ---
Author Organization [employer] [facility] Address [address] [place] [address] Care Team Providers Care Cabinet Mounter Name Role Phone Morelia Astudillo MD Primary Care Provider [phone] Surgical History Surgery Date Site/Laterality Comments COLONOSCOPY [...] volving multiple joints; COMMENT: Folows with rheumatology [place] Fibromyalgia 02/03/2019 DX:Fibromyalgia; COMMENT: Follows with rheumatology [...] RESULTING AGENCY - 02/20/2018 8:17 AM EST [id number] THINPREP PAP, IMAGED: NEGATIVE FOR SQUAMOUS INTRAEPITHELIAL [...] Recently Relevant to Health Maintenance Care Teams Cabinet Mounter Relationship Specialty Start Date End Date Morelia Astudillo MD [address] [place] [id number] PCP - General Internal Medicine 03/19/19
--- OUTSIDE RECORDS SUMMARY | 2024-07-08 12:56 | XMS_ITS | Clinical Summary ---
Author Organization [facility] Address [address] [place] [address] Care Team Providers Care Software Design Analyst Name Role Phone Gabbie Del Valle PA-C Primary Care Provider [phone] Source Comments PLEASE NOTE, if this patient [...] 09/26/2021 Medications omeprazole (PRILOSEC) [address] capsuleIndicati ons:Reflux gastritis Take 1 Capsule by mouth every morning before breakfast 90 Capsule 09/27/19 22 Active melatonin 3 mg tabletIndicatio ns:Insomnia, unspecified type Take 1 Tablet by mouth nightly at bedtime as needed for sleep 90 Tablet 09/27/19 22 Active meclizine 25 mg chewable tabletIndicatio ns:Dizziness Place 1 Tablet into mouth, chew and swallow 3 (three) times daily as needed for nausea or dizziness 90 Tablet 2 08/24/19 23 Active milnacipran (SAVELLA) 25 mg tabletIndicatio ns:Fibromyalgia Take 1 Tablet by mouth 2 (two) times daily For fibromyalgia. 60 Tablet 1 11/20/19 23 Active meloxicam (MOBIC) 15 mg tabletIndicatio ns:Fibromyalgia Take 1 Tablet by mouth once daily 30 Tablet 3 10/07/19 24 Active DULoxetine (CYMBALTA) [address] capsuleIndicati ons:Fibromyalgi a Take 1 Capsule by mouth once daily 90 Capsule 1 10/07/19 24 Active guaiFENesin 400 mg tabIndications: Productive cough Take 1 Tablet by mouth every 4 (four) hours as needed for cough 30 Tablet 03/24/20 24 Active losartan (COZAAR) 100 mg tabletIndicatio ns:Hypertension , essential Take 1 Tablet by mouth once daily 90 Tablet 1 03/24/20 24 Active loratadine (CLARITIN) 10 mg tabletIndicatio ns:Dry cough TAKE 1 TABLET BY MOUTH ONCE DAILY NEEDED FOR ALLERGIES 90 Tablet 06/18/19 25 Active loratadine (CLARITIN) 10 mg tabletIndicatio ns:Dry cough TAKE 1 TABLET BY MOUTH ONCE DAILY NEEDED FOR ALLERGIES 90 Tablet 03/23/20 24 025 Discontinued Active Problems Problem Noted Date Diagnosed Date Myopia of both eyes 12/24/2023 Blurry vision, bilateral 12/24/2023 Prediabetes 12/24/2023 Food insecurity 02/06/2023 Financial difficulties 02/06/2023 Housing problems 02/06/2023 Lack of access to transportation 02/06/2023 Hypertension, essential 09/26/2021 Fibromyalgia 09/26/2021 Reflux gastritis 09/26/2021 Encounters Date Type Department Care Team Description 05/10/2024 11:40 AM EST Telemedicine Visit [facility] [address] [place] [address] Gabbie Del Valle PA-C Abnormal endometrial ultrasound (Primary Dx); Pelvic pain from Last 3 Months Immunizations Immunization Administration Dates Next Due Flu, Cell Culture [...] Health Maintenance Due Date Last Done Comments Anxiety Screening [address] Colonography 2008 Colonoscopy 2008 Colorectal Cancer Screening 2008 FIT/gFOBT 2008 Fecal DNA 2008 Flexible Sigmoidoscopy 2008 [id number] ( season) 2023 04/02/2021, 07/31/2020, 07/01/2020 Imm-Influenza [...] Procedure Name Priority Date/Time Associated Diagnosis Comments IMAGING SCANNED DOCUMENT 06/24/2024 3:00 AM EDT IMAGING SCANNED DOCUMENT 06/24/2024 3:00 AM EDT REFERRAL SCANNED DOCUMENT 06/15/2024 3:00 AM EST OTHER ORDERS SCANNED DOCUMENT 05/19/2024 3:00 AM [...] Recently Relevant to Health Maintenance Results * IMAGING SCANNED DOCUMENT (06/24/2024 3:00 AM EDT) Only the most recent of2 resultswithin the time period is included. 06/24/2024 3:00 AM EDT Gabbie Del Valle PA-C SCAN IMAGING Final Result * REFERRAL SCANNED DOCUMENT (06/15/2024 3:00 AM EST) 06/15/2024 3:00 AM EST Gabbie Del Valle PA-C SCAN REFERRAL Final Result * US BREAST BILATERAL (05/19/2024 3:00 AM EST) 05/19/2024 3:00 AM EST Gabbie Del Valle PA-C IMG ULTRASOUND Final Result * OTHER ORDERS SCANNED DOCUMENT (05/19/2024 3:00 AM EST) 05/19/2024 3:00 AM EST Gabbie BANUELOS-Jessica SCAN OTHER ORDERS Final Resu lt * (ABNORMAL) LIPIDS W RFLX TO DIRECT LDL (12/24/2023 2:05 PM EDT) CHOLESTEROL, TOTAL 241(H) <200 mg/dL [facility] HDL CHOLESTEROL 49(L) > OR = 50 mg/dL [facility] TRIGLYCERIDES 110 <150 mg/dL [facility] LDL-CHOLESTEROL 168(H) 99 mg/dL (calc) [facility] Comment: Reference range: <100 Desirable range <100 mg/dL for primary prevention; ?? <70 mg/dL for patients with CHD or diabetic patients with > or = 2 CHD risk factors. LDL-C is now calculated using the Ahmet-Driscoll calculation, which is a validated novel method providing better accuracy than the Friedewald equation in the estimation of LDL-C. Ahmet SS et al. SURINDER. 2013;310(19): 4355-2975 (http://education.[employer]/faq/BIU631) CHOL/HDLC RATIO 4.9 <5.0 (calc) [facility] NON-HDL CHOLESTEROL 192(H) <130 mg/dL (calc) [facility] Comment: For patients with diabetes plus 1 major ASCVD risk factor, treating to a non-HDL-C goal of <100 mg/dL (LDL-C of <70 mg/dL) is considered a therapeutic option. Blood Blood / Unknown 12/24/2023 2 :05 PM EDT 12/24/2023 2:06 PM EDT Narrative [facility] - 12/26/2023 1:08 AM EDT FASTING:NO Result [facility] Gabbie Del Valle PA-C LAB - BLOOD DRAW Final Resul t [facility] [address] [address], [employer] [facility] [address] [place] [address] * (ABNORMAL) COMPREHENSIVE METABOLIC PANEL (12/24/2023 2:05 PM EDT) GLUCOSE 79 65 - 139 mg/dL [employer] [facility] Comment: ?Non-fasting reference interval UREA NITROGEN (BUN) 16 7 - 25 mg/dL [employer] [facility] CREATININE (blood) 0.75 0.50 - 1.05 mg/dL [employer] [facility] EGFR 91 > OR = 60 mL/min/1. 73m2 [employer] [facility] BUN/CREATININE RATIO SEE NOTE: [employer] [facility] Comment: ?? Not Reported: BUN and Creatinine are within ?? reference range. ? SODIUM 139 135 - 146 mmol/L [employer] [facility] POTASSIUM 4.4 3.5 - 5.3 mmol/L [employer] [facility] CHLORIDE 104 98 - 110 mmol/L [employer] [facility] CARBON DIOXIDE 26 20 - 32 mmol/L [employer] [facility] CALCIUM 10.1 8.6 - 10.4 mg/dL [employer] [facility] PROTEIN, TOTAL 7.7 6.1 - 8.1 g/dL [employer] [facility] ALBUMIN 4.7 3.6 - 5.1 g/dL [employer] [facility] GLOBULIN 3.0 1.9 - 3.7 g/dL (calc) [employer] [facility] ALBUMIN/GLOBULI N RATIO 1.6 1.0 - 2.5 (calc) [employer] [facility] BILIRUBIN, TOTAL 0.4 0.2 - 1.2 mg/dL [employer] [facility] ALKALINE PHOSPHATASE 96 37 - 153 U/L [employer] [facility] AST 33 10 - 35 U/L [employer] [facility] ALT 52(H) 6 - 29 U/L [employer] [facility] Blood Blood / Unknown 12/24/2023 2 :05 PM EDT 12/24/2023 2:06 PM EDT Narrative [employer] [facility] - 12/26/2023 1:08 AM EDT FASTING:NO us Gabbie Del Valle PA-C LAB - BLOOD DRAW Edited Resu lt - Final [facility] [address] [address], [employer] [place] [employer] [address] [place] [phone] * HISTORIC MAMMOGRAM (11/07/2023 3:00 AM EDT) 11/07/2023 3:00 AM EDT Gabbie Del Valle PA-C IMG MAMMO Final Result * THINPREP PAP & HPV MRNA E6/E7 RFLX HPV 16,18/[address]/NG (02/06/2023 10:22 AM EDT) CHLAMYDIA TRACHOMATIS RNA, TMA NOT DETECTED NOT DETECTED [facility] NEISSERIA GONORRHOEAE RNA, TMA NOT DETECTED NOT DETECTED [facility] COMMENT [facility] CLINICAL INFORMATION See Note [facility] Comment:ROUTINE EXAM LMP See Note [facility] Comment:POSTMENOPAUSAL PREV. PAP See Note [facility] Comment:NONE GIVEN PREV. BX See Note [facility] Comment:NONE GIVEN SOURCE See Note [facility] Comment:Cervix STATEMENT OF ADEQUACY See Note [facility] Comment:SATISFACTORY FOR LONNIE LUATION INTERPRETATION/RESU LT See Note [facility] Comment: Cytology Results: Negative for intraepithelial lesion or malignancy. Atrophic pattern; predominantly parabasal cells SALES REPRESENTATIVE [employer] See Note [facility] [employer] Comment: YP, CT(ASCP) CT screening location: [address] ??[address] REVIEW SALES REPRESENTATIVE [employer] See Note [facility] Comment: BLC,CT(ASCP) CT screening location: [address] ??[address] COMMENT [facility] HPV MRNA E6/E7 Not Detected Not Detected [facility] Comment: Methodology: Media Center Director School-Mediated Amplification This assay detects E6/E7 viral messenger RNA (mRNA) from 14 high-risk HPV types (16,18,31,33,35,39,45,51,52,56,58,59,66,68). Cervical sources are required for HPV testing. If a vaginal source from a patient who has had a total hysterectomy with removal of cervix was submitted, please contact the testing laboratory for alternative testing options. For additional information, please refer to http://[employer]/faq/IEG238d6 (This link if provided for information/ educational purposes only.) CYTOLOGY Cervix uteri structure / Unknown 02/06/2023 10:22 AM EDT 02/08/2023 3:44 AM EDT Narrative [facility] - 02/13/2023 4:00 PM EDT EXPLANATORY NOTE: [...] test SurePath(TM) specimens have been determined by [facility]. The modifications have not been cleared or approved by the FDA. This assay has been validated pursuant to the CLIA regulations and is used for clinical purposes. For additional information, please refer to https://[employer]/faq/YIO683 (This link is being provided for information/ educational purposes only.) Nazanin Campoverde MD LAB - NO BLOOD DRAW Final Result [facility] [address] [place] [address], [facility] [address] [place] [phone] * HEPATITIS C AB W/RFLX HCV RNA, QT, RT PCR (09/26/2021 10:36 AM EDT) HEPATITIS C ANTIBODY NON-REACT EVERARDO NON-REACT EVERARDO [facility] SIGNAL TO CUT-OFF 0.02 <1.00 [facility] Comment: HCV antibody was non-reactive. There is no laboratory evidence of HCV infection. In most cases, no further action is required. However, if recent HCV exposure is suspected, a test for HCV RNA (test code 42570) is suggested. For additional information please refer to http://[employer]/faq/VNR59u7 (This link is being provided for informational/ educational purposes only.) Blood Blood / Unknown 09/26/2021 1 0:36 AM EDT 09/26/2021 10:37 AM EDT Gabbie Albakassie BANUELOS-C LAB - BLOOD DRAW Edited Resu lt - Final [employer] [place] [facility] [employer] [address] [address], [employer] [facility] [address],[facility] [place] [address] * HIV 1/2 AG & AB W/RFLX (4TH GEN) (09/26/2021 10:36 AM EDT) [facility] HIV AG/AB, 4TH GEN NON-REAC TIVE NON-REAC TIVE [employer] [facility] Comment: HIV-1 antigen and HIV-1/HIV-2 antibodies were [...] ?? For additional information please refer to http://education.[employer]/faq/FRH424 (This link is being provided for informational/ educational purposes only.) The performance of this assay has not been clinically validated in patients less than 2 years old. Blood Blood / Unknown 09/26/2021 1 0:36 AM EDT 09/26/2021 10:37 AM EDT Gabbie BANUELOS-C LAB - BLOOD DRAW Final Resul t [facility] [address] [address], [employer] [facility] [address],[facility] [place] [address] from Last 3 Months or Most Recently Relevant to Health Maintenance Insurance [facility] PL[facility] Member Subscriber Plan / Payer (Ef fective 2024-Present) Name:Anna Dickens Relation to Subscriber:Self Name:Anna Dickens Payer ID:[id number] Group ID:Not on file Type:Medicaid Address: [facility] [address] [place] [address] Care Teams Software Design Analyst Relationship Specialty Start Date End Date Gabbie Del Valle PA-C [facility] [place] [address] PCP - General Internal Medicine 07/24/21
== END 2024-07-08 10:39 | disposition home or self-care (01) ==
LOC: HO.HWS 10:08
PROVIDERS: PCP Physician Assistant; Visit Provider Obstetrics & Gynecology
DX: R93.5 Abnormal findings on diagnostic imaging of other abdominal regions, including retroperitoneum (principal); D21.9 Benign neoplasm of connective and other soft tissue, unspecified
CPT/HCPCS: 99213

== ENCOUNTER → 2024-07-08 10:08 | Outpatient (BNVA) | payer OTHER, SELFPAY | PROVIDERS: PCP Physician Assistant; Visit Provider Obstetrics & Gynecology | DX: R93.5 Abnormal findings on diagnostic imaging of other abdominal regions, including retroperitoneum (principal); D21.9 Benign neoplasm of connective and other soft tissue, unspecified; R10.9 Unspecified abdominal pain | CPT/HCPCS: 99212 ==

== ENCOUNTER 2024-07-22 09:40 | Outpatient (AMB) | payer OTHER, SELFPAY ==
--- NOTE | 2024-07-22 09:54 | MHC.OFFVIS ---
Intake Visit Reasons: ECC Lead Sewage Plant Operator Required: Yes Lead Sewage Plant Operator Language: Grocery Store Associate Services: Lead Sewage Plant Operator Present (in person) Lead Sewage Plant Operator Name: SURY Ellison Information Interpreted: non-clinical & clinical Green Building Engineer: Green Building Engineer Present (Marisela Michael SURY) Accompanied by: Self / Same As Patient Allergies codeine Allergy (Intermediate, Verified 07/08/24 10:30) Vomiting latex Allergy (Intermediate, Verified 07/08/24 10:30) Rash morphine Allergy (Unknown, Verified 07/08/24 10:30) Unknown HPI Comments Details: Presenting for follow-up. 10/05 pelvic ultrasound showed the following: IMPRESSION: 1. The endometrium is heterogeneous with combination of solid and cystic appearing contents, measuring up to 0.6 cm in thickness. This is abnormal in a postmenopausal patient and gynecologic consultation is recommended for evaluation of hyperplasia/neoplasia. 2. There is a 1.4 cm indeterminate intramural lesion in the cervix, possibly representing a fibroid, although location is somewhat atypical. This could be further characterized with an outpatient pelvic MRI with and without IV contrast. 3. There is a 0.8 cm intramural posterior uterine lesion, most likely representing a fibroid. 4. The ovaries are normal in morphology with preserved flow at the moment of this examination. Pelvic MRI done on 06/24/24 showed the following: IMPRESSION: 1. 1.5 cm posterior cervical fibroid. 2. Additional subcentimeter fibroids involving the uterine body. 2. Cystic hyperplasia of the cervical mucosa. Correlation with results of recent hysteroscopy is recommended. 06/17/24 hysteroscopy D&C was done, intraoperative finding identified endometrial polyp, polypectomy done, the pathology showed the following: A. Endometrium, polypectomy: Fragments of endometrial polyp; no atypia identified. B. Endometrium, curettage: Superficial strips of inactive endometrium; no atypia or hyperplasia identified Last co testing in 06/16/2024 was negative Pelvic ultrasound scheduled in six-month for follow-up uterine myomas PFSH Medical History Breast cancer Fibromyalgia GERD (gastroesophageal reflux disease) HTN (hypertension) Surgical History Hx of tubal ligation History of bladder surgery Hx of breast surgery Hx of cholecystectomy Family History Mother HTN (hypertension) Father HTN (hypertension) Heart attack Maternal Aunt Breast cancer Maternal Uncle Colon cancer Paternal Grandmother Uterus cancer Social History Household Members: None Housing: House Are you a primary childcare teacher to a significant other at home: No Do you presently have visiting nurse or other home services: No Alcohol intake: never Patient Tobacco Use Status: Never used Tobacco Current occupational status: employed 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 Correlation with results of recent hysteroscopy is recommended Discussed with the patient the intraoperative finding with the hysteroscopy normal endocervix, normal endo myometrial pathology and polyp pathology, negative co testing. As a another measure of safety recommended endocervical curettage to rule out endometrial pathology including endometrial hyperplasia and/or malignancy., the patient agreed. Using ECC curette, ECC done without any complication, Monsel's solution applied afterwards. Instructions given the patient to call in case of heavy bleeding, fever above 100.4 or pelvic pain. All questions answered, the patient verbalized understanding and agreed with the plan Instructions given the patient to schedule a 2 week follow-up. Coding Level of Care Code Est Pt Level 3 (72352) Diagnoses Abnormal cervix finding N88.9
--- OUTSIDE RECORDS SUMMARY | 2024-07-22 10:49 | XMS_ITS | Clinical Summary ---
Author Organization [facility] Address [address] [place] [address] Care Team Providers Care Therapist Speech Name Role Phone Gabbie Del Valle PA-C Primary Care Provider [phone] Source Comments PLEASE NOTE, if this patient [...] once daily 90 Capsule 1 4 Active guaiFENesin 400 mg tabIndications:P roductive cough Take 1 Tablet by mouth every 4 (four) hours as needed for cough 30 Tablet 12/11/202 4 Active losartan (COZAAR) 100 mg tabletIndication s:Hypertension, essential Take 1 Tablet by mouth once daily 90 Tablet 1 4 Active loratadine (CLARITIN) 10 mg tabletIndication s:Dry cough TAKE 1 TABLET BY MOUTH ONCE DAILY NEEDED FOR ALLERGIES 90 Tablet 5 Active Active Problems Problem Noted Date Diagnosed Date Myopia of both eyes 12/24/2023 Blurry vision, bilateral 12/24/2023 Prediabetes 12/24/2023 Food insecurity 02/06/2023 Financial difficulties 02/06/2023 Housing problems 02/06/2023 Lack of access to transportation 02/06/2023 Hypertension, essential 09/26/2021 Fibromyalgia 09/26/2021 Reflux gastritis 09/26/2021 Encounters Date Type Department Care Team Description 05/10/2024 11:40 AM EST Telemedicine Visit [facility] [address] [place] [phone] Gabbie Del Valle PA-C Abnormal endometrial [...] 2008 Fecal DNA 2008 Flexible Sigmoidoscopy 2008 [id number] ( season) 2023 04/02/2021, 07/31/2020, 07/01/2020 Imm-Influenza [...] period is included. 06/24/2024 3:00 AM EDT [facility] PA-C SCAN IMAGING Final Result * REFERRAL SCANNED DOCUMENT (06/15/2024 3:00 AM EST) 06/15/2024 3:00 AM EST Gabbie Del Valle PA-C SCAN REFERRAL Final Result * US BREAST BILATERAL (05/19/2024 3:00 AM EST) 05/19/2024 3:00 AM EST [employer] PA-C IMG ULTRASOUND Final Result * OTHER ORDERS SCANNED DOCUMENT (05/19/2024 3:00 AM EST) 05/19/2024 3:00 AM EST us Gabbie Del Valle PA-C SCAN OTHER ORDERS Final Resu lt * (ABNORMAL) LIPIDS W RFLX TO DIRECT LDL (12/24/2023 2:05 PM EDT) CHOLESTEROL, TOTAL 241(H) <200 mg/dL [facility] HDL CHOLESTEROL 49(L) > OR = 50 mg/dL [facility] TRIGLYCERIDES 110 <150 mg/dL [facility] LDL-CHOLESTEROL 168(H) 99 mg/dL (calc) [facility] Comment: Reference range: <100 Desirable range <100 mg/dL for primary prevention; ?? <70 mg/dL for patients with CHD or diabetic patients with > or = 2 CHD risk factors. LDL-C is now calculated using the Juan Manuel calculation, which is a validated novel method providing better accuracy than the Friedewald equation in the estimation of LDL-C. Ahmet SS et al. SURINDER. 2013;310(19): 2872-1574 (http://education.[employer]/faq/MMJ197) CHOL/HDLC RATIO 4.9 <5.0 (calc) [facility] NON-HDL CHOLESTEROL 192(H) <130 mg/dL (calc) [facility] Comment: For patients with diabetes plus 1 major ASCVD risk factor, treating to a non-HDL-C goal of <100 mg/dL (LDL-C of <70 mg/dL) is considered a therapeutic option. Blood Blood / Unknown 12/24/2023 2 :05 PM EDT 12/24/2023 2:06 PM EDT Narrative [facility] - 12/26/2023 1:08 AM EDT FASTING:NO us Gabbie Del Valle PA-C LAB - BLOOD DRAW Final Resul t [facility] [address] [place] [id number], [facility] [address] [place] [phone] * (ABNORMAL) COMPREHENSIVE METABOLIC PANEL (12/24/2023 2:05 PM EDT) GLUCOSE 79 65 - 139 mg/dL [facility] Comment: ?Non-fasting reference interval UREA NITROGEN (BUN) 16 7 - 25 mg/dL [facility] CREATININE (blood) 0.75 0.50 - 1.05 mg/dL [facility] EGFR 91 > OR = 60 mL/min/1. 73m2 [facility] BUN/CREATININE RATIO SEE NOTE: [facility] Comment: ?? Not Reported: BUN and Creatinine are within ?? reference range. ? SODIUM 139 135 - 146 mmol/L [facility] POTASSIUM 4.4 3.5 - 5.3 mmol/L [facility] CHLORIDE 104 98 - 110 mmol/L [facility] CARBON DIOXIDE 26 20 - 32 mmol/L [facility] CALCIUM 10.1 8.6 - 10.4 mg/dL [facility] PROTEIN, TOTAL 7.7 6.1 - 8.1 g/dL [facility] ALBUMIN 4.7 3.6 - 5.1 g/dL [facility] GLOBULIN 3.0 1.9 - 3.7 g/dL (calc) [facility] ALBUMIN/GLOBULI N RATIO 1.6 1.0 - 2.5 (calc) [facility] BILIRUBIN, TOTAL 0.4 0.2 - 1.2 mg/dL [facility] ALKALINE PHOSPHATASE 96 37 - 153 U/L [facility] AST 33 10 - 35 U/L [facility] ALT 52(H) 6 - 29 U/L [facility] Blood Blood / Unknown 12/24/2023 2 :05 PM EDT 12/24/2023 2:06 PM EDT Narrative [facility] - 12/26/2023 1:08 AM EDT FASTING:NO us Gabbie Del Valle PA-C LAB - BLOOD DRAW Edited Resu lt - Final [facility] [address] [address], [employer] [facility] [address] [place] [address] * HISTORIC MAMMOGRAM (11/07/2023 3:00 AM EDT) 11/07/2023 3:00 AM EDT Gabbie Del Valle PA-C IM MAMMO Final Result * THINPREP PAP & HPV MRNA E6/E7 RFLX HPV 16,18/[address]/NG (02/06/2023 10:22 AM EDT) CHLAMYDIA TRACHOMATIS RNA, TMA NOT DETECTED NOT DETECTED [facility] NEISSERIA GONORRHOEAE RNA, TMA NOT DETECTED NOT DETECTED [facility] COMMENT [facility] CLINICAL INFORMATION See Note [facility] Comment:ROUTINE EXAM LMP See Note [facility] Comment:POSTMENOPAUSAL PREV. PAP See Note [facility] Comment:NONE GIVEN PREV. BX See Note [facility] Comment:NONE GIVEN SOURCE See Note [facility] Comment:Cervix STATEMENT OF ADEQUACY See Note [facility] Comment:SATISFACTORY FOR LONNIE LUATION INTERPRETATION/RESU LT See Note [facility] Comment: Cytology Results: Negative for intraepithelial lesion or malignancy. Atrophic pattern; predominantly parabasal cells PRE PAROLE COUNSELING AIDE See Note [facility] Comment: YP, CT(ASCP) CT screening location: [address] ??[address] REVIEW PRE PAROLE COUNSELING AIDE See Note [facility] Comment: BLC,CT(ASCP) CT screening location: [address] ??[address] COMMENT [facility] HPV MRNA E6/E7 Not Detected Not Detected [facility] Comment: Methodology: Fleet Maintenance Foreman-Mediated Amplification This assay detects E6/E7 viral messenger RNA (mRNA) from 14 high-risk HPV types (16,18,31,33,35,39,45,51,52,56,58,59,66,68). Cervical sources are required for HPV testing. If a vaginal source from a patient who has had a total hysterectomy with removal of cervix was submitted, please contact the testing laboratory for alternative testing options. For additional information, please refer to http://education.[employer]/faq/QFG354c7 (This link if provided for information/ educational purposes only.) CYTOLOGY Cervix uteri structure / Unknown 02/06/2023 10:22 AM EDT 02/08/2023 3:44 AM EDT Narrative [facility] - 02/13/2023 4:00 PM EDT EXPLANATORY NOTE: [...] test SurePath(TM) specimens have been determined by [facility]. The modifications have not been cleared or approved by the FDA. This assay has been validated pursuant to the CLIA regulations and is used for clinical purposes. For additional information, please refer to https://[employer]/faq/RIH836 (This link is being provided for information/ educational purposes only.) Nazanin Campoverde MD LAB - NO BLOOD DRAW Final Result [facility] [address] [address], [facility] [place] [facility] [address] [place] [address] * HEPATITIS C AB W/RFLX HCV RNA, QT, RT PCR (09/26/2021 10:36 AM EDT) HEPATITIS C ANTIBODY NON-REACT EVERARDO NON-REACT EVERARDO [facility] SIGNAL TO CUT-OFF 0.02 <1.00 [facility] Comment: HCV antibody was non-reactive. There is no laboratory evidence of HCV infection. In most cases, no further action is required. However, if recent HCV exposure is suspected, a test for HCV RNA (test code 69556) is suggested. For additional information please refer to http://education.[employer]/faq/WKJ44j3 (This link is being provided for informational/ educational purposes only.) Blood Blood / Unknown 09/26/2021 1 0:36 AM EDT 09/26/2021 10:37 AM EDT Gabbie Albakassie BANUELOS-C LAB - BLOOD DRAW Edited Resu lt - Final Performing Organization Address [facility] Co de Phone Number [facility] [address] [address], [facility] [address] [phone] * HIV 1/2 AG & AB W/RFLX (4TH GEN) (09/26/2021 10:36 AM EDT) HIV AG/AB, 4TH GEN NON-REAC TIVE NON-REAC TIVE [facility] [employer] [facility] Comment: HIV-1 antigen and HIV-1/HIV-2 antibodies [...] ?? For additional information please refer to http://education.[employer]/faq/BLH512 (This link is being provided for informational/ educational purposes only.) The performance of this assay has not been clinically validated in patients less than 2 years old. Blood Blood / Unknown 09/26/2021 1 0:36 AM EDT 09/26/2021 10:37 AM EDT Gabbie Del Valle PA-C LAB - BLOOD DRAW Final Resul t Performing Organization Address City/[facility]/ZIP Co de Phone Number [facility] [address] [address], [facility] [address] [phone] from Last 3 Months or Most Recently Relevant to Health Maintenance Insurance [facility] Member Subscriber Plan / Payer (Ef fective 2024-Present) Name:Anna Dickens Relation to Subscriber:Self Name:Anna Dickens Payer ID:[id number] Group ID:Not on file Type:Medicaid Address: [facility] [address] [place] [address] Care Teams Therapist Speech Relationship Specialty Start Date End Date Gabbie Del Valle PA-C [address] [place] [address] PCP - General Internal Medicine 07/24/21
--- OUTSIDE RECORDS SUMMARY | 2024-07-22 10:49 | XMS_ITS | Clinical Summary ---
Author Organization [facility] Address [address] [place] [address] Care Team Providers Care Licensed Nurse Practitioner Name Role Phone Morelia Astudillo MD Primary Care Provider [phone] Surgical History Surgery Date Site/Laterality Comments COLONOSCOPY [...] volving multiple joints; COMMENT: Folows with rheumatology [place] Fibromyalgia 02/03/2019 DX:Fibromyalgia; COMMENT: Follows with rheumatology [...] 5 season) 2023 07/31/2020, 07/01/2020 Influenza Vaccine (Season Ended) 2024 03/19/2019, 01/23/2018 DTaP,Tdap,and Td Vaccines (3 - Td or Tdap) 09/06/2027 09/05/2017, 04/29/2005 RSV Immunization Adult Patients (1 - 1-dose 75+ series) 2038 HIB [...] age to complete this topic Meningococcal B Vaccine Aged Out No l onger eligible based on patient's age to complete [...] RESULTING AGENCY - 02/20/2018 8:17 AM EST [id number] THINPREP PAP, IMAGED: NEGATIVE FOR SQUAMOUS INTRAEPITHELIAL LESION AND MALIGNANCY . REACTIVE CELLULAR CHANGES. REI RENNER , REDD(ASCP) (CASE SCREENED 02 17 2018) BRITTNEY ALEGRIA M.D. , PATHOLOGIST (CASE ELECTRONICALLY SIGNED 02 18 2018) RESULT OF APTIMA HIGH RISK HPV ASSAY: HIGH RISK HPV: ??NEGATIVE (SEROTYPES 16,18,31,33,35,39,45,51,52,56,58,59,66,68) COMPLETED ON 2018-02-17 ADEQUACY: SATISFACTORY ENDOCERVICAL/TRANSFORMATION ZONE COMPONENT PRESENT. SOURCE: THINPREP PAP HPV ANY DX: ??REFLEX 16 AND 18, CERVICAL, IMAGED: CLINICAL INFORMATION: HPV ANY DIAGNOSIS. Z01.419, Z12.4 Chauncey Oneill MD LAB CYTOLOGY ORDERABLES Final Result HISTORICAL TESTING LAB RESULTING AGENCY from Last 3 Months or Most Recently Relevant to Health Maintenance Care Teams Licensed Nurse Practitioner Relationship Specialty Start Date End Date Morelia Astudillo MD [address] [place] [address] PCP - General Internal Medicine 03/19/19
== END 2024-07-22 10:11 | disposition home or self-care (01) ==
LOC: HO.HWS 09:40
PROVIDERS: PCP Physician Assistant; Visit Provider Obstetrics & Gynecology
DX: N88.9 Noninflammatory disorder of cervix uteri, unspecified (principal)
CPT/HCPCS: 99213

== ENCOUNTER 2024-07-22 09:40 | Outpatient (REF) | payer OTHER, SELFPAY ==
--- OUTSIDE RECORDS SUMMARY | 2024-07-22 11:50 | XMS_ITS | Clinical Summary ---
Author Organization [facility] Address [address] [place] [address] Care Team Providers Care Boiler Fitter Name Role Phone Gabbie Del Valle PA-C Primary Care Provider [phone] Source Comments PLEASE NOTE, if this patient [...] Description 05/10/2024 11:40 AM EST Telemedicine Visit [facility] [address] [place] [phone] Gabbie Del Valle PA-C Abnormal endometrial [...] 2008 Fecal DNA 2008 Flexible Sigmoidoscopy 2008 [id number] ( season) 2023 04/02/2021, 07/31/2020, 07/01/2020 Imm-Influenza [...] period is included. 06/24/2024 3:00 AM EDT [employer] PA-C SCAN IMAGING Final Result * REFERRAL SCANNED DOCUMENT (06/15/2024 3:00 AM EST) 06/15/2024 3:00 AM EST Gabbie Del Valle PA-C SCAN REFERRAL Final Result * US BREAST BILATERAL (05/19/2024 3:00 AM EST) 05/19/2024 3:00 AM EST [employer] PA-C IMG ULTRASOUND Final Result * OTHER ORDERS SCANNED DOCUMENT (05/19/2024 3:00 AM EST) 05/19/2024 3:00 AM EST us Gabbie Del Valle PA-C SCAN OTHER ORDERS Final Resu lt * (ABNORMAL) LIPIDS W RFLX TO DIRECT LDL (12/24/2023 2:05 PM EDT) CHOLESTEROL, TOTAL 241(H) <200 mg/dL [facility] HDL CHOLESTEROL 49(L) > OR = 50 mg/dL [facility] TRIGLYCERIDES 110 <150 mg/dL [facility] LDL-CHOLESTEROL 168(H) 99 mg/dL (calc) [facility] Comment: Reference range: <100 Desirable range <100 mg/dL for primary prevention; ?? <70 mg/dL for patients with CHD or diabetic patients with > or = 2 CHD risk factors. LDL-C is now calculated using the Juan Manuel calculation, which is a validated novel method providing better accuracy than the Friedewald equation in the estimation of LDL-C. Ahmet SS et al. SURINDER. 2013;310(19): 6280-7221 (http://education.Plaid/faq/DUG378) CHOL/HDLC RATIO 4.9 <5.0 (calc) [facility] NON-HDL CHOLESTEROL 192(H) <130 mg/dL (calc) [facility] Comment: For patients with diabetes plus 1 major ASCVD risk factor, treating to a non-HDL-C goal of <100 mg/dL (LDL-C of <70 mg/dL) is considered a therapeutic option. Blood Blood / Unknown 12/24/2023 2 :05 PM EDT 12/24/2023 2:06 PM EDT Narrative [facility] - 12/26/2023 1:08 AM EDT FASTING:NO us Gabbie Del Valle PA-C LAB - BLOOD DRAW Final Resul t [facility] [address] [place] [address], [facility] [address] [place] [phone] * (ABNORMAL) COMPREHENSIVE METABOLIC PANEL (12/24/2023 2:05 PM EDT) GLUCOSE 79 65 - 139 mg/dL [facility] Comment: ?Non-fasting reference interval UREA NITROGEN (BUN) 16 7 - 25 mg/dL [facility] CREATININE (blood) 0.75 0.50 - 1.05 mg/dL [facility] EGFR 91 > OR = 60 mL/min/1. 73m2 [facility] BUN/CREATININE RATIO SEE NOTE: [facility] Comment: ?? Not Reported: BUN and Creatinine are within ?? reference range. ? SODIUM 139 135 - 146 mmol/L [facility] POTASSIUM 4.4 3.5 - 5.3 mmol/L [facility] CHLORIDE 104 98 - 110 mmol/L [facility] CARBON DIOXIDE 26 20 - 32 mmol/L [facility] CALCIUM 10.1 8.6 - 10.4 mg/dL [facility] PROTEIN, TOTAL 7.7 6.1 - 8.1 g/dL [facility] ALBUMIN 4.7 3.6 - 5.1 g/dL [facility] GLOBULIN 3.0 1.9 - 3.7 g/dL (calc) [facility] ALBUMIN/GLOBULI N RATIO 1.6 1.0 - 2.5 (calc) [facility] BILIRUBIN, TOTAL 0.4 0.2 - 1.2 mg/dL [facility] ALKALINE PHOSPHATASE 96 37 - 153 U/L [facility] AST 33 10 - 35 U/L [facility] ALT 52(H) 6 - 29 U/L [facility] Blood Blood / Unknown 12/24/2023 2 :05 PM EDT 12/24/2023 2:06 PM EDT Narrative [facility] - 12/26/2023 1:08 AM EDT FASTING:NO us Gabbie Del Valle PA-C LAB - BLOOD DRAW Edited Resu lt - Final [facility] [address] [address], [facility] [address] [place] [address] * HISTORIC MAMMOGRAM (11/07/2023 3:00 AM EDT) 11/07/2023 3:00 AM EDT Gabbie Del Valle PA-C IM MAMMO Final Result * THINPREP PAP & HPV MRNA E6/E7 RFLX HPV 16,18/[address]/NG (02/06/2023 10:22 AM EDT) CHLAMYDIA TRACHOMATIS RNA, TMA NOT DETECTED NOT DETECTED [facility] NEISSERIA GONORRHOEAE RNA, TMA NOT DETECTED NOT DETECTED [facility] COMMENT [facility] CLINICAL INFORMATION See Note [facility] Comment:ROUTINE EXAM LMP See Note [facility] Comment:POSTMENOPAUSAL PREV. PAP See Note [facility] Comment:NONE GIVEN PREV. BX See Note [facility] Comment:NONE GIVEN SOURCE See Note [facility] Comment:Cervix STATEMENT OF ADEQUACY See Note [facility] Comment:SATISFACTORY FOR LONNIE LUATION INTERPRETATION/RESU LT See Note [facility] Comment: Cytology Results: Negative for intraepithelial lesion or malignancy. Atrophic pattern; predominantly parabasal cells CRYSTAL EVALUATOR See Note [employer] Comment: YP, CT(ASCP) CT screening location: [address] ??[address] REVIEW CRYSTAL EVALUATOR See Note [facility] Comment: BLC,CT(ASCP) CT screening location: [address] ??[address] COMMENT [facility] HPV MRNA E6/E7 Not Detected Not Detected [facility] Comment: Methodology: Rn Triage-Mediated Amplification This assay detects E6/E7 viral messenger RNA (mRNA) from 14 high-risk HPV types (16,18,31,33,35,39,45,51,52,56,58,59,66,68). Cervical sources are required for HPV testing. If a vaginal source from a patient who has had a total hysterectomy with removal of cervix was submitted, please contact the testing laboratory for alternative testing options. For additional information, please refer to http://education.Bill.com/faq/IQW754l2 (This link if provided for information/ educational purposes only.) CYTOLOGY Cervix uteri structure / Unknown 02/06/2023 10:22 AM EDT 02/08/2023 3:44 AM EDT Narrative [facility] - 02/13/2023 4:00 PM EDT EXPLANATORY [...] test SurePath(TM) specimens have been determined by [facility]. The modifications have not been cleared or approved by the FDA. This assay has been validated pursuant to the CLIA regulations and is used for clinical purposes. For additional information, please refer to https://Brainlike.Bill.com/faq/HFK839 (This link is being provided for information/ educational purposes only.) Nazanin Campoverde MD LAB - NO BLOOD DRAW Final Result [facility] [address] [address], [place] [facility] [address] [place] [address] * HEPATITIS C AB W/RFLX HCV RNA, QT, RT PCR (09/26/2021 10:36 AM EDT) HEPATITIS C ANTIBODY NON-REACT EVERARDO NON-REACT EVERARDO [facility] SIGNAL TO CUT-OFF 0.02 <1.00 [facility] Comment: HCV antibody was non-reactive. There is no laboratory evidence of HCV infection. In most cases, no further action is required. However, if recent HCV exposure is suspected, a test for HCV RNA (test code 28846) is suggested. For additional information please refer to http://education.Bill.com/faq/TUW25a4 (This link is being provided for informational/ educational purposes only.) Blood Blood / Unknown 09/26/2021 1 0:36 AM EDT 09/26/2021 10:37 AM EDT Gabbie Albakassie BANUELOS-C LAB - BLOOD DRAW Edited Resu lt - Final Performing Organization Address [facility] Co de Phone Number [facility] [address] [address], [facility] [address] [address] * HIV 1/2 AG & AB W/RFLX (4TH GEN) (09/26/2021 10:36 AM EDT) HIV AG/AB, 4TH GEN NON-REAC TIVE NON-REAC TIVE [facility] Comment: HIV-1 antigen and HIV-1/HIV-2 antibodies were [...] ?? For additional information please refer to http://education.Linguastat.Organ[employer] Pizza Kitchen/faq/FJC944 (This link is being provided for informational/ educational purposes only.) The performance of this assay has not been clinically validated in patients less than 2 years old. Blood Blood / Unknown 09/26/2021 1 0:36 AM EDT 09/26/2021 10:37 AM EDT Gabbie Del Valle PA-C LAB - BLOOD DRAW Final Resul t Performing Organization Address City/[facility]/ZIP Co de Phone Number [facility] [address] [address], [facility] [address] [address] from Last 3 Months or Most Recently Relevant to Health Maintenance Insurance [facility] [facility] Member Subscriber Plan / Payer (Ef fective 2024-Present) Name:Anna Dickens Relation to Subscriber:Self Name:Anna Dickens Payer ID:[id number] Group ID:Not on file Type:Medicaid Address: [facility] [address] [place] [address] Care Teams Boiler Fitter Relationship Specialty Start Date End Date Gabbie Del Valle PA-C [address] [place] [address] PCP - General Internal Medicine 07/24/21
--- OUTSIDE RECORDS SUMMARY | 2024-07-22 11:50 | XMS_ITS | Clinical Summary ---
Author Organization [facility] Address [address] [place] [address] Care Team Providers Care Information Technology Coordinator Name Role Phone Morelia Astudillo MD Primary Care Provider [phone] Surgical History Surgery Date Site/Laterality Comments COLONOSCOPY [...] volving multiple joints; COMMENT: Folows with rheumatology [place] Fibromyalgia 02/03/2019 DX:Fibromyalgia; COMMENT: Follows with rheumatology [...] RESULTING AGENCY - 02/20/2018 8:17 AM EST [id number] THINPREP PAP, IMAGED: NEGATIVE FOR SQUAMOUS INTRAEPITHELIAL [...] Recently Relevant to Health Maintenance Care Teams Information Technology Coordinator Relationship Specialty Start Date End Date Morelia Astudillo MD [address] [place] [address] PCP - General Internal Medicine 03/19/19
== END 2024-07-22 09:41 | disposition home or self-care (01) ==
LOC: HO.LNP 09:40
PROVIDERS: PCP Physician Assistant; Visit Provider Obstetrics & Gynecology
DX: N88.9 Noninflammatory disorder of cervix uteri, unspecified (principal)
CPT/HCPCS: 88305; 99212

== ENCOUNTER 2024-08-06 13:59 | Outpatient (AMB) | payer OTHER, SELFPAY ==
--- NOTE | 2024-08-06 13:59 | MHC.OFFVIS ---
Intake Visit Reasons: ECC Results Technology Strategist Required: Yes Technology Strategist Language: House Parent Services: Technology Strategist Present (in person) Technology Strategist Name: Marisela GA Information Interpreted: non-clinical & clinical Allergies codeine Allergy (Intermediate, Verified 08/06/24 14:00) Vomiting latex Allergy (Intermediate, Verified 08/06/24 14:00) Rash morphine Allergy (Unknown, Verified 08/06/24 14:00) Unknown Post menopausal: Yes HPI Comments Details: The patient is schedule telehealth visit post ECC doing well with no complaints no vaginal bleeding pelvic pain or any other concerns. 10/05 pelvic ultrasound showed the following: IMPRESSION: 1. The endometrium is heterogeneous with combination of solid and cystic appearing contents, measuring up to 0.6 cm in thickness. This is abnormal in a postmenopausal patient and gynecologic consultation is recommended for evaluation of hyperplasia/neoplasia. 2. There is a 1.4 cm indeterminate intramural lesion in the cervix, possibly representing a fibroid, although location is somewhat atypical. This could be further characterized with an outpatient pelvic MRI with and without IV contrast. 3. There is a 0.8 cm intramural posterior uterine lesion, most likely representing a fibroid. 4. The ovaries are normal in morphology with preserved flow at the moment of this examination. 07/06 pelvic MRI showed the following: IMPRESSION: 1. 1.5 cm posterior cervical fibroid. 2. Additional subcentimeter fibroids involving the uterine body. 2. Cystic hyperplasia of the cervical mucosa. Correlation with results of recent hysteroscopy is recommended. 07/06 EMB/ECC pathology showed the following: A. Endometrium, polypectomy: Fragments of endometrial polyp; no atypia identified. B. Endometrium, curettage: Superficial strips of inactive endometrium; no atypia or hyperplasia identified 07/22/2024 ECC showed the following: Inflamed endocervical and squamous epithelium with patchy atrophy and reactive changes; no atypia identified The patient is scheduled for repeat ultrasound in 02/05 [facility] Medical History Breast cancer Fibromyalgia GERD (gastroesophageal reflux disease) HTN (hypertension) Surgical History Hx of tubal ligation History of bladder surgery Hx of breast surgery Hx of cholecystectomy Family History Mother HTN (hypertension) Father HTN (hypertension) Heart attack Maternal Aunt Breast cancer Maternal Uncle Colon cancer Paternal Grandmother Uterus cancer Social History Household Members: None Housing: House Are you a primary grounds caretaker to a significant other at home: No Do you presently have visiting nurse or other home services: No Alcohol intake: never Patient Tobacco Use Status: Never used Tobacco Current occupational status: employed 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 [employer] Sexual orientation: Straight/Heterosexual Gender identity: Female Review of Systems Const All systems reviewed & are unremarkable except as noted in HPI and below Reports as per HPI and Reports no additional complaints GI Reports no additional complaints Reports no additional complaints Telehealth Telehealth Telehealth Platform: Telephone Location of provider rendering services: practice address Location of patient: address on file Patient Identification confirmed using: Name, : Yes Telehealth method: video Patient verbally consented to treatment: Yes Patient verbally consented to billing insurance company: Yes Patient informed of any privacy concerns related to visit: Yes Minutes spent on Phone/Video with Pt.: 3 Assessment & Plan Assessment & Plan (1) Abnormal cervix finding: Comment: On pelvic MRI Code(s): N88.9 - Noninflammatory disorder of cervix uteri, unspecified Category: Medical Plan: Discussed with the patient the results of the pathology. Discussed with the patient the sensitivity, specificity, positive and negative predictive value, of endometrial biopsy in detecting endometrial pathology including but not limited to endometrial /endocervical hyperplasia, cancer and other pathology; instructed the patient to call in case vaginal bleeding , the next step will be to proceed with a diagnostic hysteroscopy/D&C for further endometrial /endocervical sampling evaluation to rule out endometrial /endocervical pathology. All questions answered and the patient verbalized understanding and agreed with the plan. I spent a total of 20 minutes reviewing the chart, talking to the patient via video and documenting in the medical record. Coding Level of Care Code Tele Est Pt Level 3 (31252) Diagnoses Abnormal cervix finding N88.9
--- OUTSIDE RECORDS SUMMARY | 2024-08-06 14:41 | XMS_ITS | Clinical Summary ---
Author Organization [facility] Address [address] [place] [address] Care Team Providers Care Oval Or Circular Glass Cutter Name Role Phone Morelia Astudillo MD Primary Care Provider [phone] Surgical History Surgery Date Site/Laterality Comments COLONOSCOPY [...] volving multiple joints; COMMENT: Folows with rheumatology [place] Fibromyalgia 02/03/2019 DX:Fibromyalgia; COMMENT: Follows with rheumatology [...] RESULTING AGENCY - 02/20/2018 8:17 AM EST [id number] THINPREP PAP, IMAGED: NEGATIVE FOR SQUAMOUS INTRAEPITHELIAL [...] Recently Relevant to Health Maintenance Care Teams Oval Or Circular Glass Cutter Relationship Specialty Start Date End Date Morelia Astudillo MD [address] [place] [address] PCP - General Internal Medicine 03/19/19
--- OUTSIDE RECORDS SUMMARY | 2024-08-06 14:41 | XMS_ITS | Clinical Summary ---
Author Organization [facility] Address [address] [place] [address] Care Team Providers Care Library Media Specialist Name Role Phone Gabbie Del Valle PA-C Primary Care Provider [phone] Source Comments PLEASE NOTE, if this patient [...] Description 05/10/2024 11:40 AM EST Telemedicine Visit [facility] [address] [place] [phone] Gabbie Del Valle PA-C Abnormal endometrial [...] 2008 Fecal DNA 2008 Flexible Sigmoidoscopy 2008 [id number] ( season) 2023 04/02/2021, 07/31/2020, 07/01/2020 Imm-Influenza [...] period is included. 06/24/2024 3:00 AM EDT CUPRna PA-C SCAN IMAGING Final Result * REFERRAL SCANNED DOCUMENT (06/15/2024 3:00 AM EST) 06/15/2024 3:00 AM EST Gabbie Del Valle PA-C SCAN REFERRAL Final Result * US BREAST BILATERAL (05/19/2024 3:00 AM EST) 05/19/2024 3:00 AM EST CUPRna PA-C IMG ULTRASOUND Final Result * OTHER ORDERS SCANNED DOCUMENT (05/19/2024 3:00 AM EST) 05/19/2024 3:00 AM EST us Gabbie Del Valle PA-C SCAN OTHER ORDERS Final Resu lt * (ABNORMAL) LIPIDS W RFLX TO DIRECT LDL (12/24/2023 2:05 PM EDT) CHOLESTEROL, TOTAL 241(H) <200 mg/dL [facility] HDL CHOLESTEROL 49(L) > OR = 50 mg/dL [facility] TRIGLYCERIDES 110 <150 mg/dL [facility] LDL-CHOLESTEROL 168(H) 99 mg/dL (calc) [facility] Comment: Reference range: <100 Desirable range <100 mg/dL for primary prevention; ?? <70 mg/dL for patients with CHD or diabetic patients with > or = 2 CHD risk factors. LDL-C is now calculated using the Juan Manuel calculation, which is a validated novel method providing better accuracy than the Friedewald equation in the estimation of LDL-C. Ahmet SS et al. SURINDER. 2013;310(19): 8480-8847 (http://education.Primet Precision Materials/faq/DPS966) CHOL/HDLC RATIO 4.9 <5.0 (calc) [facility] NON-HDL CHOLESTEROL 192(H) <130 mg/dL (calc) [facility] Comment: For patients with diabetes plus 1 major ASCVD risk factor, treating to a non-HDL-C goal of <100 mg/dL (LDL-C of <70 mg/dL) is considered a therapeutic option. Blood Blood / Unknown 12/24/2023 2 :05 PM EDT 12/24/2023 2:06 PM EDT Narrative [facility] - 12/26/2023 1:08 AM EDT FASTING:NO us Gabbie Del Valle PA-C LAB - BLOOD DRAW Final Resul t [facility] [address] [place] [address], [facility] [address] [place] [phone] * (ABNORMAL) COMPREHENSIVE METABOLIC PANEL (12/24/2023 2:05 PM EDT) GLUCOSE 79 65 - 139 mg/dL [facility] Comment: ?Non-fasting reference interval UREA NITROGEN (BUN) 16 7 - 25 mg/dL [facility] CREATININE (blood) 0.75 0.50 - 1.05 mg/dL [facility] EGFR 91 > OR = 60 mL/min/1. 73m2 [facility] BUN/CREATININE RATIO SEE NOTE: [facility] Comment: ?? Not Reported: BUN and Creatinine are within ?? reference range. ? SODIUM 139 135 - 146 mmol/L [facility] POTASSIUM 4.4 3.5 - 5.3 mmol/L [facility] CHLORIDE 104 98 - 110 mmol/L [facility] CARBON DIOXIDE 26 20 - 32 mmol/L [facility] CALCIUM 10.1 8.6 - 10.4 mg/dL [facility] PROTEIN, TOTAL 7.7 6.1 - 8.1 g/dL [facility] ALBUMIN 4.7 3.6 - 5.1 g/dL [facility] GLOBULIN 3.0 1.9 - 3.7 g/dL (calc) [facility] ALBUMIN/GLOBULI N RATIO 1.6 1.0 - 2.5 (calc) [facility] BILIRUBIN, TOTAL 0.4 0.2 - 1.2 mg/dL [facility] ALKALINE PHOSPHATASE 96 37 - 153 U/L [facility] AST 33 10 - 35 U/L [facility] ALT 52(H) 6 - 29 U/L [facility] Blood Blood / Unknown 12/24/2023 2 :05 PM EDT 12/24/2023 2:06 PM EDT Narrative [facility] - 12/26/2023 1:08 AM EDT FASTING:NO us Gabbie Del Valle PA-C LAB - BLOOD DRAW Edited Resu lt - Final [facility] [address] [address], [facility] [address] [place] [address] * HISTORIC MAMMOGRAM (11/07/2023 3:00 AM EDT) 11/07/2023 3:00 AM EDT Gabbie Del Valle PA-C IM MAMMO Final Result * THINPREP PAP & HPV MRNA E6/E7 RFLX HPV 16,18/[address]/NG (02/06/2023 10:22 AM EDT) CHLAMYDIA TRACHOMATIS RNA, TMA NOT DETECTED NOT DETECTED [facility] NEISSERIA GONORRHOEAE RNA, TMA NOT DETECTED NOT DETECTED [facility] COMMENT [facility] CLINICAL INFORMATION See Note [facility] Comment:ROUTINE EXAM LMP See Note [facility] Comment:POSTMENOPAUSAL PREV. PAP See Note [facility] Comment:NONE GIVEN PREV. BX See Note [facility] Comment:NONE GIVEN SOURCE See Note [facility] Comment:Cervix STATEMENT OF ADEQUACY See Note [facility] Comment:SATISFACTORY FOR LONNIE LUATION INTERPRETATION/RESU LT See Note [facility] Comment: Cytology Results: Negative for intraepithelial lesion or malignancy. Atrophic pattern; predominantly parabasal cells STRAWBERRY GROWER See Note [email or web address] Comment: YP, CT(ASCP) CT screening location: [address] ??[address] REVIEW STRAWBERRY GROWER See Note [facility] Comment: BLC,CT(ASCP) CT screening location: [address] ??[address] COMMENT [facility] HPV MRNA E6/E7 Not Detected Not Detected [facility] Comment: Methodology: Chief Of Party-Mediated Amplification This assay detects E6/E7 viral messenger RNA (mRNA) from 14 high-risk HPV types (16,18,31,33,35,39,45,51,52,56,58,59,66,68). Cervical sources are required for HPV testing. If a vaginal source from a patient who has had a total hysterectomy with removal of cervix was submitted, please contact the testing laboratory for alternative testing options. For additional information, please refer to http://education.Green[employer] A/S/faq/FOG789a7 (This link if provided for information/ educational purposes only.) CYTOLOGY Cervix uteri structure / Unknown 02/06/2023 10:22 AM EDT 02/08/2023 3:44 AM EDT Narrative [facility] - 02/13/2023 4:00 PM EDT EXPLANATORY [...] test SurePath(TM) specimens have been determined by [employer] The modifications have not been cleared or approved by the FDA. This assay has been validated pursuant to the CLIA regulations and is used for clinical purposes. For additional information, please refer to https://StarMobile.[employer] A/S/faq/PGT437 (This link is being provided for information/ educational purposes only.) Nazanin Campoverde MD LAB - NO BLOOD DRAW Final Result [facility] [address] [address], [facility] [place] [facility] [address] [place] [address] * HEPATITIS C AB W/RFLX HCV RNA, QT, RT PCR (09/26/2021 10:36 AM EDT) HEPATITIS C ANTIBODY NON-REACT EVERARDO NON-REACT EVERARDO [facility] SIGNAL TO CUT-OFF 0.02 <1.00 [facility] Comment: HCV antibody was non-reactive. There is no laboratory evidence of HCV infection. In most cases, no further action is required. However, if recent HCV exposure is suspected, a test for HCV RNA (test code 01575) is suggested. For additional information please refer to http://education.[employer] A/S/faq/JMA68b8 (This link is being provided for informational/ educational purposes only.) Blood Blood / Unknown 09/26/2021 1 0:36 AM EDT 09/26/2021 10:37 AM EDT Gabbie Albakassie BANUELOS-C LAB - BLOOD DRAW Edited Resu lt - Final Performing Organization Address [facility] Co de Phone Number [facility] [address] [address], [facility] [address] [address] * HIV 1/2 AG & AB W/RFLX (4TH GEN) (09/26/2021 10:36 AM EDT) HIV AG/AB, 4TH GEN NON-REAC TIVE NON-REAC TIVE [facility] Comment: HIV-1 antigen and HIV-1/HIV-2 antibodies [...] ?? For additional information please refer to http://education.Wefunder.Tiragiu/faq/FOS479 (This link is being provided for informational/ educational purposes only.) The performance of this assay has not been clinically validated in patients less than 2 years old. Blood Blood / Unknown 09/26/2021 1 0:36 AM EDT 09/26/2021 10:37 AM EDT Gabbie Del Valle PA-C LAB - BLOOD DRAW Final Resul t Performing Organization Address City/[facility]/ZIP Co de Phone Number [facility] [address] [address], [facility] [address] [address] from Last 3 Months or Most Recently Relevant to Health Maintenance Insurance [facility] Member Subscriber Plan / Payer (Ef fective 2024-Present) Name:Anna Dickens Relation to Subscriber:Self Name:Anna Dickens Payer ID:[id number] Group ID:Not on file Type:Medicaid Address: [facility] [address] [place] [address] Care Teams Library Media Specialist Relationship Specialty Start Date End Date Gabbie Del Valle PA-C [address] [place] [address] PCP - General Internal Medicine 07/24/21
== END 2024-08-06 14:17 | disposition home or self-care (01) ==
LOC: HO.HWS 13:59
PROVIDERS: PCP Physician Assistant; Visit Provider Obstetrics & Gynecology
DX: N88.9 Noninflammatory disorder of cervix uteri, unspecified (principal)
CPT/HCPCS: 99213

== ENCOUNTER → 2024-08-06 13:59 | Outpatient (BNVA) | payer OTHER, SELFPAY | PROVIDERS: PCP Physician Assistant; Visit Provider Obstetrics & Gynecology ==

== ENCOUNTER 2025-01-05 10:46 | Outpatient (REF) | payer OTHER, SELFPAY ==
--- NOTE | ~2025-01-05 | US_ITS ---
EXAMINATION: US PELVIS CLINICAL INFORMATION: D21.9 - Benign neoplasm of connective and other soft tissue, unspecified COMPARISON: Ultrasound October 07, 2023 and MRI June 24, 2024 TECHNIQUE: Ultrasound of the pelvis is performed using both transabdominal and transvaginal transducers along with Doppler. Transvaginal imaging is performed due to inadequate visualization transabdominally. FINDINGS: Uterus: The uterus is anteverted and measures 8 x 3 x 3.6 cm. The double wall endometrial thickness is 4 mm. The lesion in the posterior wall of the cervix near junction with uterus is again identified measuring 12 x 13 x 13 mm, essentially unchanged. Intramural and submucosal leiomyoma in the posterior upper body of the uterus measures 8 x 6 x 8 mm, unchanged. Adnexa: Both ovaries are visualized. There is normal color flow to the adnexa. There is no ovarian torsion. There is no pelvic ascites or fluid collection. Right ovary measures 1.8 x 1.9 x 1.6 cm. Left ovary measures 1.5 x 1.6 x 1.1 cm. US/US pelvic and transvaginal IMPRESSION: Stable leiomyoma in the posterior uterus and posterior cervix. Electronically signed by: Praneeth Martínez MD 01/05/2025 12:11 PM EDT
--- OUTSIDE RECORDS SUMMARY | 2025-01-05 13:32 | XMS_ITS | Clinical Summary ---
Author Organization [facility] Address [address] [place] [address] Care Team Providers Care Manager Loss Prevention Name Role Phone Morelia Astudillo MD Primary Care Provider [phone] Surgical History Surgery Date Site/Laterality Comments COLONOSCOPY [...] volving multiple joints; COMMENT: Folows with rheumatology [place] Fibromyalgia 02/03/2019 DX:Fibromyalgia; COMMENT: Follows with rheumatology [...] Cancer Screening: P ap Smear 02/13/2021 02/13/2018 Depression Screening 04/14/2024 Cholesterol Screening (Lipid Panel) 10/06/2024 Colorectal Cancer Screening: Colonoscopy 10/06/2024 HIV Screening 10/06/2024 Hepatitis C Screening 10/06/2024 Hypertension/CHF/CAD Annual BMP Blood Test 10/06/2024 Social Influencers of Health Screening 10/06/2024 COVID-19 Vaccine (3 - 2024-2 6 season) 2024 07/31/2020, 07/01/2020 Influenza Vaccine (#1) 2024 9, 01/23/2018 DTaP,Tdap,and Td Vaccines (3 - Td [...] RESULTING AGENCY - 02/20/2018 8:17 AM EST [id number] THINPREP PAP, IMAGED: NEGATIVE FOR SQUAMOUS INTRAEPITHELIAL LESION AND MALIGNANCY . REACTIVE CELLULAR CHANGES. REDD SRIVASTAVA(ASCP) (CASE SCREENED 02 17 2018) BRITTNEY ALEGRIA M.D. , PATHOLOGIST (CASE ELECTRONICALLY SIGNED 02 18 2018) RESULT OF APTIMA HIGH RISK HPV ASSAY: HIGH RISK HPV: NEGATIVE (SEROTYPES 16,18,31,33,35,39,45,51,52,56,58,59,66,68) COMPLETED ON 2018-02-17 ADEQUACY: SATISFACTORY ENDOCERVICAL/TRANSFORMATION ZONE COMPONENT PRESENT. SOURCE: THINPREP PAP HPV ANY DX: REFLEX 16 AND 18, CERVICAL, IMAGED: CLINICAL INFORMATION: HPV ANY DIAGNOSIS. Z01.419, Z12.4 us Chauncey Oneill MD LAB CYTOLOGY ORDERABLES Final Result HISTORICAL TESTING LAB RESULTING AGENCY from Last 3 Months or Most Recently Relevant to Health Maintenance Care Teams Manager Loss Prevention Relationship Specialty Start Date End Date Morelia Astudillo MD [address] [place] [address] PCP - General Internal Medicine 03/19/19
--- OUTSIDE RECORDS SUMMARY | 2025-01-05 13:32 | XMS_ITS | Clinical Summary ---
Author Organization [facility] Address [address] [place] [address] Care Team Providers Care Surgical Asst Name Role Phone Gabbie Del Valle PA-C Primary Care Provider [phone] Source Comments PLEASE NOTE, if this patient [...] (COZAAR) 100 mg tabletIndicatio ns:Hypertension , essential TAKE 1 TABLET BY MOUTH EVERY DAY 90 Tablet 1 09/21/19 25 Active loratadine (CLARITIN) 10 mg tabletIndicatio ns:Dry cough TAKE 1 TABLET BY MOUTH ONCE DAILY NEEDED FOR ALLERGIES 90 Tablet 12/24/19 25 Active loratadine (CLARITIN) 10 mg tabletIndicatio ns:Dry cough TAKE 1 TABLET BY MOUTH ONCE DAILY NEEDED FOR ALLERGIES 90 Tablet 09/21/19 25 025 Discontinued Active Problems Problem Noted Date Diagnosed Date Myopia of both eyes 12/24/2023 Blurry vision, bilateral 12/24/2023 Prediabetes 12/24/2023 Food insecurity 02/06/2023 Financial difficulties 02/06/2023 Housing problems 02/06/2023 Lack of access to transportation 02/06/2023 Hypertension, essential 09/26/2021 Fibromyalgia 09/26/2021 Reflux gastritis 09/26/2021 Immunizations Immunization Administration Dates Next Due Flu, Cell Culture based, Multi Dose, 6m+, Flucel vax 01/23/2018 Flu, Cell Culture based, Pre servative Free, 6m+, Flucelvax 03/19/2019 Flu, Preservative Free 02/06/2023 PFIZER COVID VACCINE, PURPLE CAP, 12+ 07/31/2020 ,07/01/2020 TDAP 09/05/2017 Td (adult) unspecified 06/08/2009 Td (adult),2 Lf tetanus toxo id (TDVAX), preservative free 04/29/2005 ZOSTER VACCINE, RECOMBINANT (SHINGRIX) 3,08/03/2022 [...] e alcohol) Social Connections Answer Date Recorded How often do you feel lonely or isolated from th ose around you? 1 12/24/2023 Financial Resource Strain Answer Date R ecorded Hard to pay for: Food 1 12/24/2023 Stress Answer Date Recorded Do you feel these kinds of stress these days? 2 12/24/2023 Physical Activity Answer Date Recorded Physical Activity 0 09/26/2021 Food Insecurity Answer Date Recorded Hard to pay for: Food 1 12/24/2023 Transportation Needs Answer Date Record ed Hard to pay for: Transportation 1 12/24/2023 Housing Stability Answer Date Recorded Hard to pay for: Rent/Mortgage payment 1 12/24/2023 Safety and Environment Answer Date Morris rded Safety 0 02/06/2023 Utilities Answer Date Recorded Hard to pay for: Utilities 1 12/23 Employment Answer Date Recorded Stress 0 11/19/2022 [...] 82 03/24/2024 1:24 PM EST Temperature 36.8 C (98.2 F) 03/24/2024 1:24 PM EST Respiratory Rate 16 12/24/2023 1:17 PM EDT [...] 2008 Fecal DNA 2008 Flexible Sigmoidoscopy 2008 Imm-Pneumococcal 50+ (1 of 1 - PCV) 2013 Depression Monitoring 06/22/2024 03/24/2024 , 12/24/2023, 02/06/2023, Additional history exists Zle-[id number]-22 ( season) 2024 04/02/2021, 07/31/2020, 07/01/2020 Imm-Influenza (#1) 2024 02/06/2023, 1 05/20/2018, 01/23/2018 Annual Wellness (Adult): Indicated (All Coverage) 12/23/2024 12/24/2023, 02/06/2023, 11/19/2022 Diabetes Screening 12/23/2024 12/24/2023, 0 12/24/2023, 01/11/2023, Additional history exists Tobacco Screening 05/10/2025 05/10/2024 Breast Cancer Screening (Mammogram) 11/06/2025 11/07/2023, 10/22/2022, 10/07/2022, Additional history exists Pap Smear 02/06/2026 02/06/2023 Lipid Screening 12/23/2026 [...] Procedure Name Priority Date/Time Associated Diagnosis Comments COMPREHENSIVE METABOLIC PANEL Routine 12/24/2023 2:05 PM [...] Recently Relevant to Health Maintenance Results * (ABNORMAL) LIPIDS W RFLX TO DIRECT LDL (12/24/2023 2:05 PM EDT) CHOLESTEROL, TOTAL 241(H) <200 mg/dL [facility] HDL CHOLESTEROL 49(L) > OR = 50 mg/dL [facility] TRIGLYCERIDES 110 <150 mg/dL [facility] LDL-CHOLESTEROL 168(H) 99 mg/dL (calc) [facility] Comment: Reference range: <100 Desirable range <100 mg/dL for primary prevention; <70 mg/dL for patients with CHD or diabetic patients with > or = 2 CHD risk factors. LDL-C is now calculated using the Ahmet-Yamila calculation, which is a validated novel method providing better accuracy than the Friedewald equation in the estimation of LDL-C. Ahmet LOCKE et al. SURINDER. 2013;310(19): 4772-5600 (http://education.Applico.Wattbot/faq/TKP445) CHOL/HDLC RATIO 4.9 <5.0 (calc) [facility] NON-HDL CHOLESTEROL 192(H) <130 mg/dL (calc) [facility] Comment: For patients with diabetes plus 1 major ASCVD risk factor, treating to a non-HDL-C goal of <100 mg/dL (LDL-C of <70 mg/dL) is considered a therapeutic option. Blood Blood / Unknown 12/24/2023 2 :05 PM EDT 12/24/2023 2:06 PM EDT Narrative [facility] - 12/26/2023 1:08 AM EDT FASTING:NO Gabbie Del Valle PA-C LAB - BLOOD DRAW Final Resul t [facility] [address] [address], [facility] [address] [place] [address] * (ABNORMAL) COMPREHENSIVE METABOLIC PANEL (12/24/2023 2:05 PM EDT) GLUCOSE 79 65 - 139 mg/dL [facility] Comment: Non-fasting reference interval UREA NITROGEN (BUN) 16 7 - 25 mg/dL [facility] CREATININE (blood) 0.75 0.50 - 1.05 mg/dL [facility] EGFR 91 > OR = 60 mL/min/1. 73m2 [facility] BUN/CREATININE RATIO SEE NOTE: [facility] Comment: Not Reported: BUN and Creatinine are within reference range. SODIUM 139 135 - 146 mmol/L [facility] POTASSIUM 4.4 3.5 - 5.3 mmol/L [facility] CHLORIDE 104 98 - 110 mmol/L [facility] CARBON DIOXIDE 26 20 - 32 mmol/L [facility] CALCIUM 10.1 8.6 - 10.4 mg/dL [facility] PROTEIN, TOTAL 7.7 6.1 - 8.1 g/dL [facility] ALBUMIN 4.7 3.6 - 5.1 g/dL [facility] GLOBULIN 3.0 1.9 - 3.7 g/dL (calc) [facility] ALBUMIN/GLOBULI N RATIO 1.6 1.0 - 2.5 (calc) [facility] BILIRUBIN, TOTAL 0.4 0.2 - 1.2 mg/dL [facility] ALKALINE PHOSPHATASE 96 37 - 153 U/L [facility] AST 33 10 - 35 U/L [facility] ALT 52(H) 6 - 29 U/L [facility] Blood Blood / Unknown 12/24/2023 2 :05 PM EDT 12/24/2023 2:06 PM EDT Narrative [facility] - 12/26/2023 1:08 AM EDT FASTING:NO Gabbie Del Valle PA-C LAB - BLOOD DRAW Edited Resu lt - Final [facility] [address] [address], [facility] [address] [place] [address] * HISTORIC MAMMOGRAM (11/07/2023 3:00 AM EDT) 11/07/2023 3:00 AM EDT us Gabbie Del Valle PA-C IMG MAMMO Final Result * THINPREP PAP & HPV MRNA E6/E7 RFLX HPV 16,18/[address]/NG (02/06/2023 10:22 AM EDT) CHLAMYDIA TRACHOMATIS RNA, TMA NOT DETECTED NOT DETECTED [facility] NEISSERIA GONORRHOEAE RNA, TMA NOT DETECTED NOT DETECTED [facility] COMMENT [facility] CLINICAL INFORMATION See Note [facility] Comment:ROUTINE EXAM LMP See Note [facility] Comment:POSTMENOPAUSAL PREV. PAP See Note [facility] Comment:NONE GIVEN PREV. BX See Note [facility] Comment:NONE GIVEN SOURCE See Note [facility] Comment:Cervix STATEMENT OF ADEQUACY See Note [facility] Comment:SATISFACTORY FOR LONNIE LUATION INTERPRETATION/RESU LT See Note [facility] Comment: Cytology Results: Negative for intraepithelial lesion or malignancy. Atrophic pattern; predominantly parabasal cells TRANSPORTATION OFFICER See Note [facility] [employer] Comment: YP, CT(ASCP) CT screening location: [address] [address] REVIEW TRANSPORTATION OFFICER See Note [facility] Comment: BLC,CT(ASCP) CT screening location: [address] [address] [address] HPV MRNA E6/E7 Not Detected Not Detected [facility] Comment: Methodology: College Athlete-Mediated Amplification This assay detects E6/E7 viral messenger RNA (mRNA) from 14 high-risk HPV types (16,18,31,33,35,39,45,51,52,56,58,59,66,68). Cervical sources are required for HPV testing. If a vaginal source from a patient who has had a total hysterectomy with removal of cervix was submitted, please contact the testing laboratory for alternative testing options. For additional information, please refer to http://Jammin Java.[employer]/faq/YPG185z1 (This link if provided for information/ educational purposes only.) CYTOLOGY Cervix uteri structure / Unknown 02/06/2023 10:22 AM EDT 02/08/2023 3:44 AM EDT Narrative [facility] - 02/13/2023 4:00 PM EDT EXPLANATORY NOTE: [...] test SurePath(TM) specimens have been determined by [employer]. The modifications have not been cleared or approved by the FDA. This assay has been validated pursuant to the CLIA regulations and is used for clinical purposes. For additional information, please refer to https://Jammin Java.[employer]/faq/WPI497 (This link is being provided for information/ educational purposes only.) Nazanin Campoverde MD LAB - PATHOLOGY AND CYTOLOGY AMB ULATORY Final Result [facility] [address] [place] [address], [facility] [address] [address] * Hep C Antibody with Reflex HCV RNA (09/26/2021 10:36 AM EDT) HEPATITIS C ANTIBODY NON-REACT EVERARDO NON-REACT EVERARDO [facility] SIGNAL TO CUT-OFF 0.02 <1.00 [facility] Comment: HCV antibody was non-reactive. There is no laboratory evidence of HCV infection. In most cases, no further action is required. However, if recent HCV exposure is suspected, a test for HCV RNA (test code 97664) is suggested. For additional information please refer to http://Jammin Java.[employer]/faq/UBB64h0 (This link is being provided for informational/ educational purposes only.) Blood Blood / Unknown 09/26/2021 1 0:36 AM EDT 09/26/2021 10:37 AM EDT Gabbie Del Valle PA-C LAB - BLOOD DRAW Edited Resu lt - Final [facility] [place] [facility] [address] [facility] [address] [place] [address], [facility] [address] [address] * HIV Ag & Ab with Reflex Western Blot (09/26/2021 10:36 AM EDT) HIV AG/AB, 4TH GEN NON-REAC TIVE NON-REAC TIVE [facility] Comment: HIV-1 antigen and HIV-1/HIV-2 antibodies were not detected. There is no laboratory evidence of HIV infection. PLEASE NOTE: This information has been disclosed to you from records whose confidentiality may be protected by state law. If your state requires such protection, then the state law prohibits you from making any further disclosure of the information without the specific written consent of the person to whom it pertains, or as otherwise permitted by law. A general authorization for the release of medical or other information is NOT sufficient for this purpose. For additional information please refer to http://Jammin Java.[employer].Wattbot/faq/JPQ917 (This link is being provided for informational/ educational purposes only.) The performance of this assay has not been clinically validated in patients less than 2 years old. Blood Blood / Unknown 09/26/2021 1 0:36 AM EDT 09/26/2021 10:37 AM EDT Gabbie BANUELOS-C LAB - BLOOD DRAW Final Resul t [facility] [address] [facility] [address] [place] [address], [facility] [address] [address] from Last 3 Months or Most Recently Relevant to Health Maintenance Insurance [facility] [employer] PLAN Member Subscriber Plan / Payer (Ef fective 2024-Present) Name:ManinderAnna Relation to Subscriber:Self Name:Anna Dickens Payer ID:[id number] Group ID:Not on file Type:Medicaid Address: [facility] [address] [place] [address] Care Teams Surgical Asst Relationship Specialty Start Date End Date Gabbie Del Valle PA-C [address] [place] [address] PCP - General Internal Medicine 07/24/21
== END 2025-01-05 10:47 | disposition home or self-care (01) ==
LOC: HO.US 10:46
PROVIDERS: PCP Physician Assistant; Visit Provider Obstetrics & Gynecology
DX: D21.9 Benign neoplasm of connective and other soft tissue, unspecified (principal)
CPT/HCPCS: 76830; 76856

== ENCOUNTER → 2025-01-05 10:51 | Outpatient (BNV) | payer OTHER, SELFPAY | PROVIDERS: PCP Physician Assistant; Visit Provider Radiology Diagnostic Radiology | DX: D25.1 Intramural leiomyoma of uterus (principal) | CPT/HCPCS: 76830; 76856 ==